=== PATIENT | male | born 1970 | race Caucasian/White ===

== ENCOUNTER 2017-03-19 03:58 | Emergency (ER) | payer SELFPAY ==
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
== END 2017-03-19 05:13 | disposition home or self-care (01) ==
LOC: ERS 03:58
DX: S92.332D Displaced fracture of third metatarsal bone, left foot, subsequent encounter for fracture with routine healing (principal); S92.342D Displaced fracture of fourth metatarsal bone, left foot, subsequent encounter for fracture with routine healing; J45.909 Unspecified asthma, uncomplicated; F41.9 Anxiety disorder, unspecified; F32.9 Major depressive disorder, single episode, unspecified; Z71.6 Tobacco abuse counseling; F17.210 Nicotine dependence, cigarettes, uncomplicated; X58.XXXD Exposure to other specified factors, subsequent encounter
CPT/HCPCS: 99406

== ENCOUNTER 2017-03-23 03:55 | Emergency (ER) | payer SELFPAY ==
[2017-03-23] MEDS ORDERED: Ketorolac Tromethamine 60 MG/2 ML VIAL ONE (05:12)
== END 2017-03-23 05:52 | disposition home or self-care (01) ==
LOC: ERS 03:55
DX: Z76.0 Encounter for issue of repeat prescription (principal); M79.672 Pain in left foot; J45.909 Unspecified asthma, uncomplicated; F41.9 Anxiety disorder, unspecified; F32.9 Major depressive disorder, single episode, unspecified; F17.210 Nicotine dependence, cigarettes, uncomplicated
CPT/HCPCS: 96372; 99406; J1885

== ENCOUNTER 2017-03-31 07:24 | Emergency (ER) | payer SELFPAY ==
[2017-03-31] MEDS ORDERED: Adacel (T-DAP) 0.5 ML VIAL ONE (07:29)
[2017-03-31] MEDS ORDERED: Bacitracin Zinc 1 Packet ONE (08:46)
== END 2017-03-31 08:55 | disposition home or self-care (01) ==
LOC: ERS 07:24
DX: S61.313A Laceration without foreign body of left middle finger with damage to nail, initial encounter (principal); J45.909 Unspecified asthma, uncomplicated; I10 Essential (primary) hypertension; F41.9 Anxiety disorder, unspecified; F32.9 Major depressive disorder, single episode, unspecified; F17.210 Nicotine dependence, cigarettes, uncomplicated; W23.0XXA Caught, crushed, jammed, or pinched between moving objects, initial encounter
CPT/HCPCS: 11760; 12001; 90715; 99406

== ENCOUNTER 2017-04-11 07:43 | Emergency (ER) | payer SELFPAY ==
[2017-04-11] MEDS ORDERED: Bacitracin Zinc 1 Packet ONE (09:04)
== END 2017-04-11 09:05 | disposition home or self-care (01) ==
LOC: ERS 07:43
DX: S61.213D Laceration without foreign body of left middle finger without damage to nail, subsequent encounter (principal); I10 Essential (primary) hypertension; J44.9 Chronic obstructive pulmonary disease, unspecified; F41.9 Anxiety disorder, unspecified; F32.9 Major depressive disorder, single episode, unspecified; F17.210 Nicotine dependence, cigarettes, uncomplicated; W23.0XXD Caught, crushed, jammed, or pinched between moving objects, subsequent encounter

== ENCOUNTER 2017-04-14 08:44 | Emergency (ER) | payer SELFPAY ==
[2017-04-14] MEDS ORDERED: Bacitracin Zinc 1 Packet ONE (09:35)
== END 2017-04-14 09:45 | disposition home or self-care (01) ==
LOC: ERS 08:44
DX: S61.203D Unspecified open wound of left middle finger without damage to nail, subsequent encounter (principal); L08.9 Local infection of the skin and subcutaneous tissue, unspecified; I10 Essential (primary) hypertension; J44.9 Chronic obstructive pulmonary disease, unspecified; F41.9 Anxiety disorder, unspecified; F32.9 Major depressive disorder, single episode, unspecified; F17.210 Nicotine dependence, cigarettes, uncomplicated; Z79.899 Other long term (current) drug therapy; W23.0XXD Caught, crushed, jammed, or pinched between moving objects, subsequent encounter
CPT/HCPCS: 99406

== ENCOUNTER 2017-05-07 14:11 | Outpatient (CLI) | payer SELFPAY ==
[~2017-05-07 14:11] MED LIST: Sodium Chloride 0.9% 15 ML NEB ONE
--- NOTE | 2017-05-07 18:42 | RAD ---
LEFT HAND THREE VIEWS: 05/07/17 HISTORY: Rule out fracture and osteomyelitis, finger pain. FINDINGS/IMPRESSION: There is bony destruction involving the tuft of the distal phalanx of the middle finger. The findings are suspicious for osteomyelitis. POS: [place]
--- NOTE | 2017-05-07 20:07 | HP ---
DATE OF SERVICE: 05/07/2017. HISTORY OF PRESENT ILLNESS: Mr. Fly Johnson is a very pleasant 46-year-old gentleman who p resents to the Wound Center for evaluation of an open wound of the distal left third finger. The pat ient states that on 03/31/2017, he smashed his distal left third finger between the handle of a shopp ing cart and the cement at [facility]. He states that the wheel of the shopping cart may have gotten caught on a "miniature manhole cover." The patient states that for the wound of his distal l eft third finger, he was seen in the Emergency Department. He states that a partially avulsed nail w as removed completely and the wound edges of his left third finger wound were approximated with sutur es. The patient states that he was also placed on a course of p.o. antibiotics. The patient states that he was seen by his physician in [place] on 04/03/2017 and at this time, began soaking his left t hird finger wound on a daily basis for the next 10 days to 2 weeks, he states that he soaked his woun d in a solution of Epsom salt and bleach. The patient states that 10 days after his sutures were momo kevin, the sutures were removed. He states that on 04/14/2017, he presented again to the Emergency Dep artment for throbbing associated with his wound and at this time was told that he had developed an in fectious process associated with this with his wound. At this time, he states he was placed on a cou rse of p.o. antibiotics for 7 days. The patient states that he was subsequently seen by Dr. Ca glaser to his left third finger wound, but at this time, the wound was examined and the patient was r eferred to the Wound Center for further evaluation and treatment. PAST MEDICAL HISTORY: Negative for any chronic medical conditions. PAST SURGICAL HISTORY: Left forearm surgery over 20 years ago. MEDICATIONS: 1. Robaxin. 2. Ativan. ALLERGIES: TRAMADOL. SOCIAL HISTORY: Significant for tobacco use of 1 pack of cigarettes per day for 20 years. The patie nt admits to the heavy consumption of alcohol in the past. He states that he has not consumed any al cohol; however, for the past 2 years. FAMILY HISTORY: Significant for diabetes mellitus. The patient states that his father and grandmoth er were both diagnosed with diabetes mellitus. Family history is also significant for coronary arter y disease. The patient states that his grandfather was diagnosed with coronary artery disease. REVIEW OF SYSTEMS: The patient states that he has been cleansing his left third finger wound with al cohol or iodine. He states that he has been dressing the wound with Neosporin followed by Telfa. He has also been applying a guar over his left third finger which is secured with tape. PHYSICAL EXAMINATION: VITAL SIGNS: Temperature 98.7, pulse 104, respirations 18, blood pressure 102/75. GENERAL: A 46-year-old gentleman sitting on table in examination room in no acute distress. HEENT: Normocephalic, atraumatic. NECK: No nuchal rigidity. CHEST: Clear to auscultation. CARDIAC: Regular rate and rhythm. ABDOMEN: Soft. EXTREMITIES: A wound of the distal left third finger is present which measures approximately 1.1 x 1 .0 cm. Granulation tissue is present within the wound margins. Necrotic and nonviable tissue presen t within the wound margins was debrided with an excisional full-thickness debridement with the use of scissors. A bone fragment within the wound margins was excised with the use of scissors and sent fo r aerobic and anaerobic cultures. Desiccated and necrotic tissues at the periphery of the wound were also excised with the use of scissors. No purulent drainage is associated with the granulating woun d. No cellulitis of the left hand is appreciated. No maceration of the skin of the periwound is not ed. Edema of the distal left third finger is present on exam today. ASSESSMENT AND PLAN: Open wound of left third finger as described above. Dressing changes of Silver gentry and Chele will be initiated today. These dressing changes are to be performed on a daily basis a fter cleansing and irrigation. The patient is also to continue to utilize his finger guard secured w ith tape at all times. No antibiotics will be prescribed today based upon the appearance of the woun d. Plain films of the left hand will be obtained today to look for findings suggestive of a fracture or osteomyelitis associated with the left third finger wound. I will see Mr. Johnson again in 1 wefredy miranda
== END 2017-05-07 14:12 | disposition home or self-care (01) ==
LOC: WCC 14:11
PROVIDERS: ATTEND Family Medicine
DX: S61.203D Unspecified open wound of left middle finger without damage to nail, subsequent encounter (principal)
CPT/HCPCS: 11042; 87070; 87205; 99203; A4218; G0463

== ENCOUNTER 2017-05-14 09:31 | Outpatient (CLI) | payer SELFPAY ==
--- NOTE | 2017-05-14 10:47 | PRG ---
DATE OF SERVICE: 05/14/2017 HISTORY: Mr. Fly Johnson is a very pleasant 46-year-old gentleman who presents to the Wound Center for evaluation of an open wound of the distal left third finger. The patient stated that on 03/31/2017, he smashed his distal left third finger between the handle of a shopping cart and the cement at [facility]. He stated that the wheel of his shopping cart may have gotten caught on a "miniature manhole cover." The patient stated that for the wound of his distal left third finger, he was seen in the Emergency Department. He stated that a partially avulsed nail was removed completely, and the wound edges of his left third finger wound were approximated with sutures. The patient stated that he was also placed on a course of p.o. antibiotics. The patient stated that he was seen by his physician in [place] on 04/03/2017 and at this time began soaking his left third finger wound on a daily basis for the next 10 days to 2 weeks. He stated that he soaked his wound in a solution of Epsom salt in bleach. The patient stated that 10 days after his sutures were placed, the sutures were removed. He stated that on 04/14/2017, he presented again to the Emergency Department for throbbing associated with his wound and at this time was told that he had developed an infectious process associated with his wound. At this time, he stated, he was placed on a course of p.o. antibiotics for 7 days. The patient stated that he was subsequently seen by Dr. Penaloza unrelated to his left third finger wound, but at this time the wound was examined and the patient was referred to the Wound Center for further evaluation and treatment. Since the patient's last visit to the Wound Center, he has been performing dressing changes of Silverlon and Chele on a daily basis after cleansing and irrigation. PHYSICAL EXAMINATION: VITAL SIGNS: Temperature 97.9, pulse 92, respirations 18, and blood pressure 131/78. EXTREMITIES: A wound of the distal left third finger is present which measures approximately 0.5 x 0.8 cm. The dimensions of the wound at the time of the patient's last visit were approximately 1.1 x 1.0 cm. Granulation tissue is present within the wound margins. Necrotic and nonviable tissue present within the wound margins was debrided with an excisional full-thickness debridement with the use of a curette. Desiccated and necrotic tissue at the periphery of the wound were excised with the use of scissors. No purulent drainage is associated with the wound. No cellulitis of the left hand is appreciated. No maceration of the skin of the periwound is noted. Edema of the distal left third finger is again present on today's exam. ASSESSMENT AND PLAN: Open wound of left third finger as described above. Dressing changes of Silverlon and Chele will be continued on a daily basis after cleansing and irrigation. The patient has been told to continue to utilize his finger guard secured with tape at all times. Plain films of the left hand revealed findings suspicious for osteomyelitis of the tuft of the distal phalanx of the middle finger. The patient has been asked to report to the Emergency Department for further evaluation and treatment. The patient understands and is in agreement with the preceding treatment plan. I will see Mr. Johnson again in 1 week or alternatively after he has been seen in the Emergency Department. JADIEL
[2017-05-14] MEDS ORDERED: Sodium Chloride 0.9% 15 ML NEB ONE (13:24)
[2017-05-14] MEDS ORDERED: Lidocaine 2% Jelly 5 ML TUBE ONE (13:24)
== END 2017-05-14 09:32 | disposition home or self-care (01) ==
LOC: WCC 09:31
PROVIDERS: ATTEND Family Medicine
DX: S61.203A Unspecified open wound of left middle finger without damage to nail, initial encounter (principal)
CPT/HCPCS: 11042; A4218

== ENCOUNTER 2017-05-14 10:29 | Emergency (ER) | payer SELFPAY ==
[2017-05-14 11:14] LABS: #Basophils 0.1 thou/uL (0.0-0.2); #Eosinphils 0.1 thou/uL (0.0-0.7); #Monocytes 0.5 thou/uL (0.11-0.59); #Neutrophils 3.4 thou/uL (1.40-6.50); %Basophils 1.4 % (0.0-1.0); %Eosinophils 1.9 % (0.0-10.0); %Lymphocytes 32.3 % (21.0-51.0); %Monocytes 8.4 % (0.0-10.0); Hemoglobin 16.1 g/dL (14.0-18.0); Mean Corpuscular HGB CONC 32.9 g/dL (32.0-36.0); Mean Corpuscular Hemoglobin 34.2 pg (27.0-31.0); Mean Platelet Volume 7.1 fL (7.4-10.4); Platelet Count 287 thou/uL (130-400); RBC Distribution Width 11.8 % (11.5-14.5); Red Blood Cell (RBC) Count 4.69 mill/uL (4.70-6.10); White Blood Cell (WBC) Count 6.1 thou/uL (4.8-10.8)
[2017-05-14 11:35] LABS: ALT (SGPT) 12 U/L (8-55); AST (SGOT) 9 U/L (5-34); Albumin 4.5 g/dL (3.5-5.0); Alkaline Phosphatase 101 U/L (40-150); Anion Gap 12 mmol/L (10-20); BUN (Urea Nitrogen) 15 mg/dL (8.9-20.6); Bilirubin, Total 0.5 mg/dL (0.2-1.2); Calc. Creatinine Clearance 0 mL/min (70-130); Calcium 9.7 mg/dL (7.8-10.44); Carbon Dioxide 28 mmol/L (22-29); Chloride 103 mmol/L (98-107); Estimated GFR-MDRD 81; Globulin 2.6 g/dL (2.4-3.5); Glucose 89 mg/dL (70-105); Potassium 4.5 mmol/L (3.5-5.1); Protein, Total 7.1 g/dL (6.0-8.3); Sodium 138 mmol/L (136-145)
[2017-05-14] MEDS ORDERED: Bacitracin Zinc 1 Packet ONE (11:52)
== END 2017-05-14 12:00 | disposition home or self-care (01) ==
LOC: ERS 10:29
DX: M86.9 Osteomyelitis, unspecified (principal); I10 Essential (primary) hypertension; J44.9 Chronic obstructive pulmonary disease, unspecified; F41.9 Anxiety disorder, unspecified; F32.9 Major depressive disorder, single episode, unspecified; F17.210 Nicotine dependence, cigarettes, uncomplicated
CPT/HCPCS: 36415; 80053; 85025; 85652; 86140; 99283

== ENCOUNTER 2017-05-23 08:51 | Outpatient (CLI) | payer SELFPAY ==
--- NOTE | 2017-05-23 11:30 | PRG ---
DATE OF SERVICE: 05/23/2017 HISTORY: Mr. Fly Johnson is a very pleasant 46-year-old gentleman who presents to the Wound Center for evaluation of an open wound of the distal left third finger. The patient stated that on 03/31/2017 he smashed his distal left third finger between the handle of a shopping cart and the cement at [facility]. He stated that the wheel of his shopping cart may have gotten caught on a "miniature manhole cover." The patient stated that for the wound of his distal left third finger, he was seen in the Emergency Department. He stated that a partially avulsed nail was removed completely, and the wound edges of his left third finger wound were approximated with sutures. The patient stated that he was also placed on a course of p.o. antibiotics. The patient stated that he was seen by his physician in [place] on 04/03/2017 and at this time began soaking his left third finger wound on a daily basis for the next 10 days to 2 weeks. He stated that he soaked his wound in a solution of Epsom salt and bleach. The patient stated that 10 days after his sutures were placed, the sutures were removed. He stated that on 04/14/2017 he presented again to the Emergency Department for throbbing associated with his wound and at this time was told that he had developed an infectious process associated with his wound. At this time, he stated, he was placed on a course of p.o. antibiotics for 7 days. The patient stated that he was subsequently seen by Dr. Penaloza unrelated to his left third finger wound, but at this time the wound was examined and the patient was referred to the Wound Center for further evaluation and treatment. Since the patient's last visit to the Wound Center, Mr. Johnson has been seen in the Emergency Department. The patient has also been seen in consultation by Orthopedic Surgery. The patient states that he has a follow-up appointment with Orthopedic Surgery in 1 month. PHYSICAL EXAMINATION: VITAL SIGNS: Temperature 98.4, pulse 84, respirations 18, blood pressure 126/ 69. EXTREMITIES: The wound of the distal left third finger has healed completely. ASSESSMENT AND PLAN: Wound of left third finger. As stated above, the wound has completely healed. The patient has been asked to continue to dress the left third finger wound with gauze followed by his finger guard. The patient is also to keep his follow-up appointment with Orthopedic Surgery in 1 month. Plain films of the left hand revealed finding suspicious for osteomyelitis of the tuft of the distal phalanx of the middle finger. The patient understands and is in agreement with the preceding treatment plan. Mr. Johnson will be discharged from clinic today with follow up on a p.r.n. basis. JADIEL
[2017-05-25] MEDS ORDERED: Sodium Chloride 0.9% 15 ML NEB ONE (15:54)
== END 2017-05-23 08:52 | disposition home or self-care (01) ==
LOC: WCC 08:51
PROVIDERS: ATTEND Family Medicine
DX: S61.203D Unspecified open wound of left middle finger without damage to nail, subsequent encounter (principal)
CPT/HCPCS: 97602

== ENCOUNTER 2019-09-08 17:49 | Inpatient (IN) | payer MEDICARE ==
[2019-09-08] MEDS ORDERED: Fentanyl 100 MCG/2 ML VIAL ONE (18:18)
[2019-09-08 19:34] LABS: #Basophils 0.1 thou/uL (0.0-0.2); #Lymphocytes 1.4 thou/uL (1.20-3.40); #Monocytes 0.8 thou/uL (0.11-0.59); #Neutrophils 16.2 thou/uL (1.40-6.50); %Basophils 0.6 % (0.0-1.0); %Eosinophils 0.2 % (0.0-10.0); %Lymphocytes 7.3 % (21.0-51.0); %Monocytes 4.5 % (0.0-10.0); %Neutrophils 87.5 % (42.0-75.0); Hemoglobin 15.7 g/dL (14.0-18.0); Mean Corpuscular Hemoglobin 34.2 pg (27.0-31.0); Mean Platelet Volume 7.6 fL (7.4-10.4); Platelet Count 292 thou/uL (130-400); RBC Distribution Width 13.1 % (11.5-14.5); Red Blood Cell (RBC) Count 4.59 mill/uL (4.70-6.10); White Blood Cell (WBC) Count 18.5 thou/uL (4.8-10.8)
--- NOTE | 2019-09-08 19:36 | RAD ---
CHEST ONE VIEW: History: Pre-op evaluation. Comparison: Chest radiograph, 2017. FINDINGS: Multiple likely old right sided rib fractures. Right distal navicular osteolysis. Likely a right upper lobe bullae. No left sided confluent air space consolidation, pneumothorax, or e ffusion. IMPRESSION: Chronic findings. POS: [facility]
[2019-09-08 19:40] LABS: INR-International Normal Ratio 0.9; Prothrombin Time 12.5 sec (12.0-14.7)
[2019-09-08 19:42] LABS: PTT 22.8 SEC (22.9-36.1)
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
[2019-09-08 19:54] LABS: ALT (SGPT) 17 U/L (8-55); AST (SGOT) 17 U/L (5-34); Albumin 4.1 g/dL (3.5-5.0); Alkaline Phosphatase 108 U/L (40-110); Anion Gap 12 mmol/L (10-20); BUN (Urea Nitrogen) 12 mg/dL (8.9-20.6); Bilirubin, Total 0.4 mg/dL (0.2-1.2); Calc. Creatinine Clearance 0 mL/min (70-130); Calcium 8.8 mg/dL (7.8-10.44); Carbon Dioxide 26 mmol/L (22-29); Chloride 103 mmol/L (98-107); Estimated GFR-MDRD 88; Globulin 2.4 g/dL (2.4-3.5); Glucose 112 mg/dL (70-105); Potassium 3.6 mmol/L (3.5-5.1); Protein, Total 6.5 g/dL (6.0-8.3); Sodium 137 mmol/L (136-145)
[2019-09-08] MEDS ORDERED: Morphine 4 MG/ML VIAL ONE ×2 (21:28→22:20)
[2019-09-08 22:00] LABS: Lipase 13 U/L (8-78); Phosphorus 2.5 mg/dL (2.3-4.7)
[2019-09-08] MEDS ORDERED: Albuterol 200 PUFF (6.7GM INHALER) ONE (22:20)
[2019-09-08] MEDS ORDERED: Morphine 2 MG/ML SYRINGE SLOW IVP PRN (22:42)
[2019-09-08] MEDS ORDERED: Ondansetron PF 4 MG/2 ML Vial IVP PRN (22:42)
[2019-09-08] MEDS ORDERED: Dextrose 50% Abboject 50 ML SYRINGE SLOW IVP PRN (22:42)
[2019-09-08] MEDS ORDERED: Insulin Regular 300 UNITS/3 ML VIAL SC PRN ×2 (22:42)
[2019-09-08] MEDS ORDERED: Dextrose 5% in Water 1,000 ML IV PRN (22:42)
[2019-09-08] MEDS ORDERED: Ondansetron ODT 4 MG TAB PO PRN (22:42)
[2019-09-08] MEDS ORDERED: hydrALAZINE 20 MG/ML VIAL SLOW IVP PRN (22:42)
[2019-09-08] MEDS ORDERED: Ibuprofen 600 MG TAB PO PRN (22:47)
[2019-09-08] MEDS ORDERED: Acetaminophen/Codeine 30-300mg Tablet PO PRN ×2 (22:48)
[2019-09-08] MEDS ORDERED: Potassium Phosphate 30 MMOL in Sodium Chloride 0.9% 500 ML IVPB SCH (23:00)
[2019-09-09] MEDS: Cyclobenzaprine 10 MG TAB PO PRN ×2 (01:00→16:19)
[2019-09-09] MEDS: Acetaminophen 325 MG TAB PO SCH ×5 (01:00→23:40)
[2019-09-09 01:19] VITALS: BMI 26.9
[2019-09-09] MEDS: Sodium Chloride 0.9% 1,000 ML IV SCH ×4 (01:39→23:44)
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
[2019-09-09 05:51] LABS: Anion Gap 11 mmol/L (10-20); BUN (Urea Nitrogen) 13 mg/dL (8.9-20.6); Calc. Creatinine Clearance 143 mL/min (70-130); Calcium 8.2 mg/dL (7.8-10.44); Carbon Dioxide 27 mmol/L (22-29); Chloride 102 mmol/L (98-107); Estimated GFR-MDRD Greater than 90; Glucose 116 mg/dL (70-105); Potassium 4.2 mmol/L (3.5-5.1); Sodium 136 mmol/L (136-145)
[2019-09-09] MEDS ORDERED: CEFAZOLIN 2 GM in Premix Bag 1 BAG IVPB SCH ×4 (07:33→16:00)
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
[2019-09-09] MEDS: Senokot S 8.6-50 MG TAB PO SCH ×2 (08:16→20:16)
[2019-09-09] MEDS: Polyethylene Glycol 3350 17 GM Packet PO SCH (08:16)
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
[2019-09-09] MEDS ORDERED: ALBUTEROL SULFATE 90 MCG PO PRN (10:13)
[2019-09-09] MEDS ORDERED: PROVENTIL INHALER 6.7 G (200 INHALATIONS) INH PRN (10:49)
[2019-09-09] MEDS ORDERED: Lidocaine 1% PF 5 ML VIAL ONE ×2 (11:08→11:41)
[2019-09-09] MEDS ORDERED: Succinylcholine Chloride 20 MG/ML 10 ml SYRINGE FS ONE (11:08)
[2019-09-09] MEDS ORDERED: Ondansetron PF 4 MG/2 ML Vial ONE (11:08)
[2019-09-09] MEDS ORDERED: Ketorolac Tromethamine 30 MG/ML VIAL ONE (11:08)
[2019-09-09] MEDS ORDERED: Rocuronium Bromide 10 MG/ML (10ML VIAL) ONE (11:08)
[2019-09-09] MEDS ORDERED: PROPOFOL 200 MG/20 ML VIAL ONE (11:08)
[2019-09-09] MEDS ORDERED: Midazolam HCl 2 mg/2 ml Vial ONE (11:41)
[2019-09-09] MEDS ORDERED: Fentanyl 100 MCG/2 ML VIAL ONE ×5 (11:41→14:45)
[2019-09-09] MEDS ORDERED: Promethazine HCl 25 MG/ML VIAL SLOW IVP PRN (13:16)
[2019-09-09] MEDS ORDERED: Promethazine HCl 25 MG/ML VIAL IM PRN ×2 (13:16→14:44)
[2019-09-09] MEDS ORDERED: Ondansetron HCl/PF 4 MG/2 ML Vial IVP PRN (13:16)
[2019-09-09] MEDS ORDERED: Ondansetron PF 4 MG/2 ML Vial IVP PRN (14:44)
[2019-09-09] MEDS ORDERED: HYDROcodone/Acetaminophen 10/325 mg Tablet PO PRN ×2 (14:44)
[2019-09-09] MEDS ORDERED: Acetaminophen 325 MG TAB PO PRN (14:44)
[2019-09-09] MEDS ORDERED: Ropivacaine HCl/PF 250 ML in Premix Bag 1 BAG NERVE BLCK SCH (14:44)
[2019-09-09] MEDS ORDERED: Zolpidem Tartrate 5 MG TAB PO PRN (14:44)
[2019-09-09] MEDS ORDERED: Fentanyl 100 MCG/2 ML VIAL SLOW IVP PRN (14:45)
[2019-09-09] MEDS ORDERED: HYDROcodone/Acetaminophen 10/325 mg Tablet ONE (14:55)
[2019-09-09] MEDS: Nicotine 14 MG PATCH TD SCH (16:20)
[2019-09-09] MEDS: Ketorolac Tromethamine 30 MG/ML VIAL IVP SCH ×2 (17:58→23:40)
--- NOTE | 2019-09-09 18:27 | RAD ---
TWO VIEWS OF THE LEFT FORELE09/09/19 INDICATIONS: ORIF of left tibia and fibula fracture. COMPARISON: Prior exam dated 09/08/19. IMPRESSION: Since the comparison examination there has been reduction and internal fixation of the comminuted spi ral fracture of the proximal tibial metadiaphyseal region. There is a lateral JORDIN plate and screw fi xation construct that projects into expected position. There is approved alignment of the displaced p roximal fibular shaft fracture. There is some residual medial displacement of the distal fracture fra gment approximated one full shaft width. Total exposure was 0.56 mGy. Total fluoroscopic time was 13. 2 seconds. IMPRESSION: 1. Interval ORIF of the left proximal tibial fracture. 2. Improved alignment of the comminuted proximal fibular shaft. POS: BH
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
[2019-09-09] MEDS: Lorazepam 1 MG TAB PO SCH (20:16)
[2019-09-09] MEDS: CEFAZOLIN 2 GM in Premix Bag 1 BAG IVPB SCH (20:16)
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
[2019-09-10] MEDS: Acetaminophen 325 MG TAB PO SCH ×2 (05:33→13:02)
[2019-09-10] MEDS: Ketorolac Tromethamine 30 MG/ML VIAL IVP SCH (05:33)
[2019-09-10] MEDS: CEFAZOLIN 2 GM in Premix Bag 1 BAG IVPB SCH (05:33)
[2019-09-10 05:59] LABS: #Lymphocytes 1.7 thou/uL (1.20-3.40); #Monocytes 0.7 thou/uL (0.11-0.59); #Neutrophils 7.4 thou/uL (1.40-6.50); %Basophils 0.4 % (0.0-1.0); %Eosinophils 0.5 % (0.0-10.0); %Lymphocytes 17.4 % (21.0-51.0); %Monocytes 7.3 % (0.0-10.0); %Neutrophils 74.4 % (42.0-75.0); Hemoglobin 11.6 g/dL (14.0-18.0); Mean Corpuscular HGB CONC 32.4 g/dL (32.0-36.0); Mean Corpuscular Hemoglobin 33.7 pg (27.0-31.0); Mean Platelet Volume 7.5 fL (7.4-10.4); Platelet Count 187 thou/uL (130-400); RBC Distribution Width 12.8 % (11.5-14.5); Red Blood Cell (RBC) Count 3.45 mill/uL (4.70-6.10)
[2019-09-10] MEDS: Lorazepam 1 MG TAB PO SCH (08:52)
[2019-09-10] MEDS: Nicotine 14 MG PATCH TD SCH (08:52)
[2019-09-10] MEDS: Polyethylene Glycol 3350 17 GM Packet PO SCH (08:53)
[2019-09-10] MEDS: Senokot S 8.6-50 MG TAB PO SCH (08:53)
[2019-09-10] MEDS ORDERED: tiZANidine HCl 4 MG TAB PO SCH (09:00)
[2019-09-10] MEDS ORDERED: Lorazepam 0.5 MG TAB PO SCH (09:00)
[2019-09-10] MEDS ORDERED: PARoxetine 20 MG TAB PO SCH (09:00)
[2019-09-10] MEDS ORDERED: PAROXETINE HCL 30 MG PO SCH (09:00)
[2019-09-10] MEDS ORDERED: Ibuprofen 600 MG TAB PO SCH (12:00)
[2019-09-10 12:34] VITALS: BP 94/62; TEMP 98.5
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
[2019-09-10] MEDS ORDERED: Enoxaparin Sodium 40 MG/0.4 ML SYRINGE SC SCH (21:00)
== END 2019-09-10 13:40 | disposition home or self-care (01) | DRG 494 ==
LOC: ERS 17:49 → SURG A 22:42
PROVIDERS: ADMIT Specialist; ATTEND Specialist
PROC: 0QSH04Z Reposition Left Tibia with Internal Fixation Device, Open Approach (ICD-10-PCS; principal; 2019-09-09)
DX: S82.192B Other fracture of upper end of left tibia, initial encounter for open fracture type I or II (principal); S82.432B Displaced oblique fracture of shaft of left fibula, initial encounter for open fracture type I or II; J44.9 Chronic obstructive pulmonary disease, unspecified; R73.03 Prediabetes; F17.210 Nicotine dependence, cigarettes, uncomplicated; V29.40XA Motorcycle driver injured in collision with unspecified motor vehicles in traffic accident, initial encounter; Z88.5 Allergy status to narcotic agent; Z79.899 Other long term (current) drug therapy; Z79.51 Long term (current) use of inhaled steroids
CPT/HCPCS: 36415; 36416; 71045; 76000; 80048; 80053; 83690; 83735; 84100; 85025; 85610; 85730; 90471; 90732; 93005; 94640; 96365; 96367; 96375; 96376; C1713; G0009; J0690; J1885; J2001; J2250; J2270; J2405; J2704; J3010; J7030; J7620

== ENCOUNTER 2019-10-28 10:14 | Observation (INO) | payer MEDICARE ==
[2019-10-28 11:35] LABS: #Basophils 0.1 thou/uL (0.0-0.2); #Eosinphils 0.1 thou/uL (0.0-0.7); #Lymphocytes 1.2 thou/uL (1.20-3.40); #Monocytes 0.4 thou/uL (0.11-0.59); #Neutrophils 4.5 thou/uL (1.40-6.50); %Basophils 0.8 % (0.0-1.0); %Eosinophils 1.7 % (0.0-10.0); %Lymphocytes 19.3 % (21.0-51.0); %Monocytes 6.1 % (0.0-10.0); Hemoglobin 15.9 g/dL (14.0-18.0); Mean Corpuscular HGB CONC 33.4 g/dL (32.0-36.0); Mean Corpuscular Hemoglobin 34.3 pg (27.0-31.0); Platelet Count 370 thou/uL (130-400); RBC Distribution Width 12.8 % (11.5-14.5); Red Blood Cell (RBC) Count 4.65 mill/uL (4.70-6.10); White Blood Cell (WBC) Count 6.3 thou/uL (4.8-10.8)
[2019-10-28] MEDS ORDERED: Fentanyl 100 MCG/2 ML VIAL ONE ×5 (12:35→15:33)
[2019-10-28] MEDS ORDERED: Neomycin-Polymyxin 1 ML AMP ONE (13:02)
[2019-10-28] MEDS ORDERED: HYDROmorphone 0.5 MG/0.5 ML SYRINGE ONE (13:03)
[2019-10-28] MEDS ORDERED: PROPOFOL 200 MG/20 ML VIAL ONE (14:37)
[2019-10-28] MEDS ORDERED: Lidocaine 1% PF 5 ML VIAL ONE (14:37)
[2019-10-28] MEDS ORDERED: Dexamethasone 20 MG/5 ML VIAL ONE (14:37)
[2019-10-28] MEDS ORDERED: Ondansetron PF 4 MG/2 ML Vial ONE (14:37)
[2019-10-28] MEDS ORDERED: HYDROcodone/Acetaminophen 5/325 mg Tablet PO PRN (14:48)
[2019-10-28] MEDS ORDERED: Ondansetron HCl/PF 4 MG/2 ML Vial IVP PRN (14:50)
[2019-10-28] MEDS ORDERED: PACU-Morphine 4MG/ML VIAL SLOW IVP PRN (14:50)
[2019-10-28] MEDS ORDERED: Promethazine HCl 25 MG/ML VIAL SLOW IVP PRN (14:50)
[2019-10-28] MEDS ORDERED: HYDROmorphone 2 MG/ML VIAL SLOW IVP PRN (14:50)
[2019-10-28] MEDS ORDERED: Morphine Sulfate 2 MG/ML SYRINGE SLOW IVP PRN (14:50)
[2019-10-28] MEDS ORDERED: Promethazine HCl 25 MG/ML VIAL IM PRN (14:50)
[2019-10-28] MEDS ORDERED: Meperidine HCl/PF 25 MG/ML VIAL SLOW IVP PRN (14:50)
[2019-10-28] MEDS ORDERED: CEFAZOLIN 2 GM in Premix Bag 1 BAG IVPB SCH (16:00)
[2019-10-28] MEDS: HYDROcodone/Acetaminophen 5/325 mg Tablet PO PRN ×2 (17:42→21:22)
[2019-10-28] MEDS: Aspirin 81 mg Enteric Coated Tablet PO SCH (21:22)
[2019-10-28] MEDS: CEFAZOLIN 2 GM in Premix Bag 1 BAG IVPB SCH (21:22)
[2019-10-28] MEDS: Ketorolac Tromethamine 30 MG/ML VIAL IVP PRN (21:55)
--- NOTE | 2019-10-28 22:27 | OP ---
DATE OF PROCEDURE: 10/28/2019 PREOPERATIVE DIAGNOSIS: Left lower leg wound dehiscence, status post open reduction and internal fixation of left proximal tibial metaphysis. POSTOPERATIVE DIAGNOSIS: Left lower leg wound dehiscence, status post open reduction and internal fixation of left proximal tibial metaphysis. PROCEDURES: 1. Irrigation and debridement of left leg wound dehiscence. 2. Application of wound VAC, left leg. ANESTHESIA: General. CONTACT MANAGER: Pretty Spivey PA-C TOURNIQUET TIME: Zero. SPECIMEN: Eschar discarded. COMPLICATIONS: None. DRAINS: Wound VAC x1. OUTCOME: Satisfactory. INDICATIONS FOR PROCEDURE: Patient is a 49-year-old gentleman, now approaching two months post open reduction and internal fixation of left proximal tibial metaphyseal fracture. Patient has gone on to develop an eschar and partial wound dehiscence of this leg. He was seen last week in the clinic, where he was started on some oral antibiotics and then asked to return this week. Upon reevaluation, he does have an eschar that is now fully detached from the surrounding skin edges with some serosanguineous drainage. Given this finding, patient now taken to the operating room for debridement, anticipated wound VAC application. Informed consent has been obtained. I believe all questions have been answered. DESCRIPTION OF PROCEDURE: Patient was brought to the operating room and a time-out performed followed by induction of general anesthesia. Next, a sterile prep and drape was performed of the left lower extremity. Next, a scalpel was used to sharply debride the eschar along with portion of the skin edges and some of the fibrinous exudate overlying the fascia. The fascia was still closed with no holes apparent within the fascia. Given this finding, the sharp debridement stopped at the level of the fascia. There was a second small area of partial thickness wound dehiscence just distal. This also sharply debrided through the level of skin and subcutaneous tissue. With completion of this, 3 L of normal saline was irrigated through this superficial wound dehiscence. Once completed, there was found to be punctate bleeding of much of the fascia and surrounding skin edge. At this point, the wound care team was in the operating room and a wound VAC applied. At the completion of that, patient was then transferred to recovery room in stable condition. There were no complications. He tolerated the procedure well. Job ID: [id number]
[2019-10-29] MEDS: HYDROcodone/Acetaminophen 5/325 mg Tablet PO PRN ×6 (01:31→22:54)
[2019-10-29] MEDS: Ketorolac Tromethamine 30 MG/ML VIAL IVP PRN (05:59)
[2019-10-29] MEDS: CEFAZOLIN 2 GM in Premix Bag 1 BAG IVPB SCH ×3 (05:59→22:56)
[2019-10-29 06:10] LABS: #Basophils 0.1 thou/uL (0.0-0.2); #Eosinphils 0.1 thou/uL (0.0-0.7); #Lymphocytes 2.3 thou/uL (1.20-3.40); #Monocytes 0.6 thou/uL (0.11-0.59); #Neutrophils 3.5 thou/uL (1.40-6.50); %Basophils 0.9 % (0.0-1.0); %Eosinophils 1.6 % (0.0-10.0); %Lymphocytes 35.2 % (21.0-51.0); %Monocytes 9.3 % (0.0-10.0); %Neutrophils 53.1 % (42.0-75.0); Hemoglobin 13.6 g/dL (14.0-18.0); Mean Corpuscular Hemoglobin 33.3 pg (27.0-31.0); Mean Platelet Volume 6.9 fL (7.4-10.4); Platelet Count 333 thou/uL (130-400); RBC Distribution Width 12.5 % (11.5-14.5); Red Blood Cell (RBC) Count 4.08 mill/uL (4.70-6.10); White Blood Cell (WBC) Count 6.6 thou/uL (4.8-10.8)
[2019-10-29] MEDS: Aspirin 81 mg Enteric Coated Tablet PO SCH ×2 (08:53→22:55)
[2019-10-29] MEDS ORDERED: TETANUS AND DIPHTHERIA TOX/PF 0.5 ML DISP.SYRIN IM SCH (09:00)
[2019-10-29 14:21] VITALS: BMI 26.2
[2019-10-30] MEDS: HYDROcodone/Acetaminophen 5/325 mg Tablet PO PRN ×3 (03:02→10:12)
[2019-10-30] MEDS: CEFAZOLIN 2 GM in Premix Bag 1 BAG IVPB SCH (06:43)
[2019-10-30 08:42] VITALS: BP 133/84; TEMP 98.3
--- NOTE | 2019-10-30 09:20 | DIS ---
DATE OF ADMISSION: 10/28/2019 DATE OF DISCHARGE: 10/30/2019 This is Pretty Spivey PA-C dictating a report for Isiah Thibodeaux MD. PREOPERATIVE DIAGNOSIS: Left lower leg wound dehiscence, status post open reduction and internal fixation of left proximal tibial metaphysis. POSTOPERATIVE DIAGNOSIS: Left lower leg wound dehiscence, status post open reduction and internal fixation of left proximal tibial metaphysis. PROCEDURES PERFORMED: 1. Irrigation and debridement of left leg wound dehiscence. 2. Application of wound VAC, left leg. BRIEF HOSPITAL COURSE: This is a 49-year-old gentleman, approximately two months status post open reduction and internal fixation of a left proximal tibial metaphyseal fracture. The patient has gone on to develop an eschar and partial wound dehiscence of his leg. He has been seen in the clinic recently, where he was started on some oral antibiotics and then asked to return. Upon re-evaluation, he did have an eschar that was fully detached from the surrounding skin edges with some serosanguineous drainage. Given this finding, the patient was indicated for the above-mentioned procedure. He did well in the operative suite and then postoperatively, he was admitted to [place] [address] [facility]. Here, he continued to work on his nonweightbearing status. He had a wound VAC, which was applied in the operating room. He underwent approval for a home VAC through wound care. He also underwent process for Home Health Therapy to see him upon discharge to take care of his wound VAC. He is now postoperative day #2 and indicated for discharge home. DISCHARGE DISPOSITION: Home. DISCHARGE CONDITION: Stable. DISCHARGE INSTRUCTIONS: The patient will follow up with Home Health for wound VAC changes. He will follow up in our clinic as scheduled. We have again discussed smoking cessation. He will continue antibiotics as prescribed in the clinic. DISCHARGE MEDICATIONS: See JUN. Job ID: [id number]
[2019-10-30] MEDS: Aspirin 81 mg Enteric Coated Tablet PO SCH (10:11)
--- NOTE | 2019-11-05 05:51 | PQF ---
[facility] POST DISCHARGE CLINICAL DOCUMENTATION IMPROVEMENT CLARIFICATION FORM l Todays Date: 11/04/19 l Patients Name PARTH HICKMAN l l Admit Date 10/28/19 l Disch Date 10/30/19 Hyperion Developer Name Artem Garcia Email: [email or web address] Cell: [phone] To be completed by Hyperion Developer: Present Clinical Indicators - Signs / Symptoms Results and Location in Medical Record [ ] Documentation of: [ ] [ ] Documentation of: [ ] [ ] Documentation of: [ ] [ ] Documentation of: [ ] [ ] Risks [ ] [ ] [ ] Treatment [ ] Superficial postoperative wound dehiscence Left lower leg Query for area (sq cm) of debridement [ ] [ ] To be completed by Physician: KHUSHBOO SINGLETON The documentation in this patients record requires clarification to ensure coding compliance and accuracy. Check the appropriate box and include in your discharge summary. [ ] [ ] [ ] [ ] Please check this box if this does not apply to this patient [ ] Unable to determine [ ] Other diagnosis: Review the following information and exercise your independent professional judgment in responding to the clarification. Based upon the clinical findings, risk factors, and treatment, please clarify if you are treating one of the above probable or suspected diagnoses. Physician Signature: Date Time MTDD
== END 2019-10-30 13:35 | disposition home or self-care (01) ==
LOC: SDC 10:14 → SURG B 16:06
PROVIDERS: ADMIT Orthopaedic Surgery; ATTEND Orthopaedic Surgery
DX: T81.31XA Disruption of external operation (surgical) wound, not elsewhere classified, initial encounter (principal); J44.9 Chronic obstructive pulmonary disease, unspecified; R73.03 Prediabetes; F17.200 Nicotine dependence, unspecified, uncomplicated; Z79.1 Long term (current) use of non-steroidal anti-inflammatories (NSAID); Z79.82 Long term (current) use of aspirin; Z79.899 Other long term (current) drug therapy; Z88.5 Allergy status to narcotic agent; Z91.048 Other nonmedicinal substance allergy status
CPT/HCPCS: 85025 ×2; 85652; 86140; 96365; 96366; 96375; 96376 ×2; 97139 ×6; G0378 ×3; 36415; J0690; J1100; J1170; J1885; J2405; J2704; J3010

== ENCOUNTER 2019-12-02 09:11 | Outpatient (CLI) | payer MEDICARE, OTHER ==
[2019-12-03 15:25] LABS: SARS-CoV-2 MS2 Positive; SARS-CoV-2 N Gene Negative; SARS-CoV-2 S Gene Negative; SARS-CoV-2 by NAA Not Detected (NotDetected); SARS-CoV-2 orf1ab Negative
== END 2019-12-02 09:12 | disposition home or self-care (01) ==
LOC: LABBT 09:11
PROVIDERS: ATTEND Orthopaedic Surgery
DX: Z01.812 Encounter for preprocedural laboratory examination (principal); Z11.59 Encounter for screening for other viral diseases; S82.202D Unspecified fracture of shaft of left tibia, subsequent encounter for closed fracture with routine healing
CPT/HCPCS: 87635; U0003

== ENCOUNTER 2020-01-04 15:24 | Inpatient (IN) | payer MEDICARE, OTHER ==
[~2020-01-04 15:24] MED LIST changes: +Heparin 1,000 UNITS/ML VIAL ONE; -Sodium Chloride 0.9% 15 ML NEB ONE
[2020-01-04] MEDS ORDERED: Vancomycin 1 GM/200 ML BAG ONE (16:25)
[2020-01-04 16:28] LABS: #Basophils 0.1 thou/uL (0.0-0.2); #Eosinphils 0.2 thou/uL (0.0-0.7); #Lymphocytes 0.6 thou/uL (1.20-3.40); #Monocytes 0.3 thou/uL (0.11-0.59); #Neutrophils 15.2 thou/uL (1.40-6.50); %Basophils 0.3 % (0.0-1.0); %Eosinophils 1.1 % (0.0-10.0); %Lymphocytes 3.7 % (21.0-51.0); %Monocytes 1.9 % (0.0-10.0); Hemoglobin 11.5 g/dL (14.0-18.0); Mean Corpuscular HGB CONC 32.4 g/dL (32.0-36.0); Mean Corpuscular Hemoglobin 33.3 pg (27.0-31.0); Mean Platelet Volume 7.2 fL (7.4-10.4); Platelet Count 351 thou/uL (130-400); RBC Distribution Width 13.1 % (11.5-14.5); Red Blood Cell (RBC) Count 3.44 mill/uL (4.70-6.10); White Blood Cell (WBC) Count 16.3 thou/uL (4.8-10.8)
[2020-01-04 16:50] LABS: ALT (SGPT) Less than 7 U/L (8-55); AST (SGOT) 9 U/L (5-34); Albumin 3.6 g/dL (3.5-5.0); Alkaline Phosphatase 140 U/L (40-110); Anion Gap 17 mmol/L (10-20); BUN (Urea Nitrogen) 21 mg/dL (8.9-20.6); Bilirubin, Total 0.7 mg/dL (0.2-1.2); CK (CPK) 150 U/L (30-200); Calc. Creatinine Clearance 0 mL/min (70-130); Calcium 9.2 mg/dL (7.8-10.44); Carbon Dioxide 25 mmol/L (22-29); Chloride 93 mmol/L (98-107); Estimated GFR-MDRD 36; Globulin 3.1 g/dL (2.4-3.5); Glucose 132 mg/dL (70-105); Potassium 3.4 mmol/L (3.5-5.1); Protein, Total 6.7 g/dL (6.0-8.3); Sodium 132 mmol/L (136-145)
[2020-01-04] MEDS ORDERED: Cefepime 2 GM VIAL ONE (16:56)
[2020-01-04 17:01] LABS: CRP (Inflammatory) 50.99 mg/dL (= or < 0.5)
[2020-01-04] MEDS ORDERED: Clindamycin/D5W 900 mg/50 ml Premix Bag ONE (17:08)
[2020-01-04] MEDS ORDERED: Morphine 4 MG/ML VIAL ONE (18:22)
[2020-01-04] MEDS ORDERED: Ondansetron PF 4 MG/2 ML Vial IVP PRN (19:47)
[2020-01-04] MEDS ORDERED: [UNRECOGNIZED DRUG - REMARK] IVPB PRN (19:59)
--- NOTE | 2020-01-04 20:40 | PDOC.EVN ---
Event Note - Event Note Event Note: [id number] HP
[2020-01-04] MEDS ORDERED: HYDROcodone/Acetaminophen 10/325 mg Tablet PO PRN (20:42)
[2020-01-04] MEDS: metroNIDAZOLE 500 MG in Premix Bag 1 BAG IVPB SCH (21:21)
[2020-01-04] MEDS: Sodium Chloride 0.9% 1,000 ML IV SCH (21:21)
[2020-01-04] MEDS ORDERED: Lorazepam 1 MG TAB PO SCH (22:00)
[2020-01-04] MEDS ORDERED: Vancomycin HCl 1 GM in Sodium Chloride 0.9% 250 ML 300 ML IVPB SCH (22:00)
[2020-01-04] MEDS ORDERED: tiZANidine HCl 4 MG TAB PO SCH (22:00)
[2020-01-04 22:05] VITALS: BMI 26.4
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
[2020-01-05] MEDS ORDERED: Cefepime 2 GM in Sodium Chloride 0.9% 100 ML IVPB SCH (05:00)
[2020-01-05 05:08] LABS: #Basophils 0.1 thou/uL (0.0-0.2); #Eosinphils 0.1 thou/uL (0.0-0.7); #Lymphocytes 0.4 thou/uL (1.20-3.40); #Monocytes 0.6 thou/uL (0.11-0.59); #Neutrophils 12.8 thou/uL (1.40-6.50); %Basophils 0.7 % (0.0-1.0); %Eosinophils 0.9 % (0.0-10.0); %Lymphocytes 2.5 % (21.0-51.0); %Monocytes 4.2 % (0.0-10.0); %Neutrophils 91.7 % (42.0-75.0); Mean Corpuscular HGB CONC 32.1 g/dL (32.0-36.0); Mean Corpuscular Hemoglobin 32.6 pg (27.0-31.0); Mean Platelet Volume 7.6 fL (7.4-10.4); Platelet Count 283 thou/uL (130-400); RBC Distribution Width 13.1 % (11.5-14.5); Red Blood Cell (RBC) Count 3.06 mill/uL (4.70-6.10); White Blood Cell (WBC) Count 13.9 thou/uL (4.8-10.8)
[2020-01-05] MEDS: metroNIDAZOLE 500 MG in Premix Bag 1 BAG IVPB SCH ×3 (05:12→21:01)
[2020-01-05] MEDS: HYDROcodone/Acetaminophen 10/325 mg Tablet PO PRN ×4 (05:17→19:33)
[2020-01-05] MEDS: Cefepime 1 GM in Sodium Chloride 0.9% 100 ML IVPB SCH ×2 (05:26→18:17)
[2020-01-05 05:28] LABS: Anion Gap 13 mmol/L (10-20); BUN (Urea Nitrogen) 15 mg/dL (8.9-20.6); Calc. Creatinine Clearance 106 mL/min (70-130); Calcium 8.3 mg/dL (7.8-10.44); Carbon Dioxide 23 mmol/L (22-29); Chloride 104 mmol/L (98-107); Estimated GFR-MDRD 71; Glucose 114 mg/dL (70-105); Potassium 3.6 mmol/L (3.5-5.1); Sodium 136 mmol/L (136-145)
[2020-01-05] MEDS: Vancomycin 1 GM in Premix Bag 1 BAG IVPB SCH ×2 (06:45→19:20)
[2020-01-05] MEDS: Enoxaparin Sodium 40 MG/0.4 ML SYRINGE SC SCH (08:54)
[2020-01-05] MEDS: Sodium Chloride 0.9% 1,000 ML IV SCH ×2 (08:54→14:22)
--- NOTE | 2020-01-05 09:39 | CON ---
DATE OF CONSULTATION: 01/05/2020 CHIEF COMPLAINT: Left knee infection. HISTORY OF PRESENT ILLNESS: Mr. Johnson is a 49-year-old male who has had a history of complications with his left proximal tibia fracture. He had initial open reduction and internal fixation back in June. Unfortunately, this became infected and required wound care as well as hardware removal and conversion to an intramedullary nail. This was accomplished approximately 1 month ago. The patient has been on a wound VAC. He has been doing okay until 2 days ago. He began having increased pain, swelling, redness, and drainage from his knee. He presented to the emergency department yesterday and was admitted. Vancomycin and cefepime have been started. He did have high fevers at 102. His COVID test is pending. PAST MEDICAL HISTORY: Anxiety and depression as well as leg injury as per HPI. PAST SURGICAL HISTORY: As per HPI. Multiple left tibial surgeries. FAMILY MEDICAL HISTORY: Noncontributory. SOCIAL HISTORY: The patient uses tobacco, alcohol, and drugs. REVIEW OF SYSTEMS: Positive for left knee pain. PHYSICAL EXAMINATION: VITAL SIGNS: Temperature is 99.2, pulse is 93, respiratory rate is 18, blood pressure is 103/61. GENERAL: He is alert, lying supine, in no apparent distress. HEENT: Normocephalic, atraumatic. RESPIRATORY: Breathing comfortably. MUSCULOSKELETAL: The patient's left leg has a wound VAC, which was removed. There is copious purulent drainage. This is coming from a deep fistula at the anterolateral aspect of the leg, likely travels down to the bone. There is purulent and putrid smell. There is granulating tissue around the wound. He is neurovascularly intact distally. IMPRESSION: Left tibial plateau fracture with ongoing infection and worsening purulent drainage. PLAN: At this point, the patient will need to go to the operating room. We will take him tomorrow for irrigation and debridement of the wound. He will likely need debridement down to the bony level. We will need to remove his intramedullary nail as it is likely infected. I will plan to place an antibiotic nail in the canal to treat his intramedullary infection. He will need long-term antibiotic treatment. He is at high risk for ongoing complications, which would include ongoing wound complications, nonunion, possibly even amputation if he cannot clear his infection. He will be n.p.o. at midnight. Job ID: [id number]
--- NOTE | 2020-01-05 10:23 | RAD ---
LEFT TIBIA FIBULA 2 VIEWS: HISTORY: Wound infection. COMPARISON: Radiograph 12/05/2019. FINDINGS: There is pretibial soft tissue gas. There is extensive pretibial soft tissue swelling. Intermedulla ry nail through the tibia appears similar with the proximal locking screws proud of the cortex. The proximal fibular mass-filled fracture is not healing adequately and is overriding. There are erosion s of the anterior tibial rim with some osteopenia of the femoral condyles. The tibial fracture is not healing proper with minimal bridging bone formation. IMPRESSION: 1. Soft tissue gas and swelling in the pretibial soft tissues near the locking screws which are prou d of the cortex. 2. Some erosions of the anterior tibial rim as well some osteopenia of the femoral condyle concernin g for underlying osteomyelitis. 3. Poorly healing tibial and fibular fractures. POS: HOME
[2020-01-05 11:41] LABS: SARS-CoV-2 MS2 Positive; SARS-CoV-2 N Gene Negative; SARS-CoV-2 S Gene Negative; SARS-CoV-2 by NAA Not Detected (NotDetected); SARS-CoV-2 orf1ab Negative
--- NOTE | 2020-01-05 15:32 | PDOC.HOSPP ---
- Subjective Encounter Date: 01/05/20 Encounter Time: 15:25 Subjective: f/u for infected L prox tibia IM nail with sepsis receiving Cefepime/ Metronidazole/Vancomycin. Plan for removal of current hardware and continuing IV abx. - Objective Vital Signs & Weight: Vital Signs (12 hours) Temp Pulse Resp BP Pulse Ox 01/05/20 15:14 98.1 F 99 14 115/60 92 L 01/05/20 10:46 98.3 F 86 14 98/61 92 L 01/05/20 08:59 97.6 F 87 16 98/63 92 L 01/05/20 04:35 99.2 F 93 18 103/61 95 Weight Admit Weight 200 lb 9.93 oz Weight 200 lb 9.93 oz I&O: 01/04/20 01/05/20 01/06/20 06:59 06:59 06:59 Intake Total 530 Balance 530 Result Diagrams: 01/05/20 04:51 01/05/20 04:51 Additional Labs: Microbiology 01/04/20 16:08 Venous blood - Right Arm Blood Culture - Preliminary Specimen has been received and culture in progress. No Growth to date. 01/04/20 16:08 Venous blood - Left Arm Blood Culture - Preliminary Specimen has been received and culture in progress. No Growth to date. Laboratory Tests 01/04/20 01/04/20 01/04/20 16:08 16:08 19:50 WBC 16.3 H Neutrophils % 93.0 H Sodium 132 L Creatinine 1.98 H C-Reactive Protein 50.99 H COVID-19 PCR Not Detected 01/05/20 04:51 WBC Neutrophils % 91.7 H Sodium Creatinine C-Reactive Protein COVID-19 PCR Hospitalist ROS - Medication Medications: Active Medications Generic Name Dose Route Start Last Admin Trade Name Freq PRN Reason Stop Dose Admin Hydrocodone Bitart/Acetaminophen 2 tab 01/04/20 23:27 01/05/20 14:18 [place] 10/325 PO 2 tab Q4H PRN Administration Moderate to Severe Pain (6-10) Enoxaparin Sodium 40 mg 01/05/20 09:00 01/05/20 08:54 Lovenox SC 40 mg 0900 WALT Administration Metronidazole 500 mg/ Device 100 mls @ 100 mls/hr 01/04/20 22:00 01/05/20 14: 18 IVPB 100 mls Q8HR WALT Administration Sodium Chloride 1,000 mls @ 100 mls/hr 01/04/20 20:00 01/05/20 14:22 Normal Saline 0.9% IV Not Given .Q10H WALT Vancomycin HCl 1 gm/ Device 200 mls @ 200 mls/hr 01/05/20 06:00 01/05/20 06: 45 IVPB 200 mls 0600,1800 WALT Administration Cefepime HCl 1 gm/ Sodium 100 mls @ 200 mls/hr 01/05/20 05:00 01/05/20 05:26 Chloride IVPB 100 mls 0500,1700 WALT Administration Sodium Chloride 10 ml 01/04/20 21:00 01/05/20 08:55 Flush - Normal Saline IVF 10 ml Q12HR WALT Administration - Exam General Appearance: NAD, awake alert Eye: PERRL, anicteric sclera ENT: normocephalic atraumatic, no oropharyngeal lesions Neck: supple, symmetric, no JVD, no thyromegaly, no lymphadenopathy Heart: RRR, no murmur, no gallops, no rubs, normal peripheral pulses Heart - other findings: S1, S2 Respiratory: CTAB, no wheezes, no rales, no ronchi, normal chest expansion Gastrointestinal: soft, non-tender, non-distended, normal bowel sounds, no palpable masses Extremities: no cyanosis, no clubbing Extremities - other findings: LLE with post surgical changes, purulence of proximal tibia Neurological: cranial nerve grossly intact, no new deficit Musculoskeletal: normal tone, normal strength Psychiatric: normal affect, A&O x 3 Hosp A/P (1) Osteomyelitis of left lower extremity Code(s): M86.9 - OSTEOMYELITIS, UNSPECIFIED Status: Acute Plan: Acute/chronic osteomyelitis with infected hardware after proximal tibial plateau fracture, continue Cefepime/Metronidazole/Vancomycin, plan for removal of hardware with washout 01/06/20 (2) Sepsis Code(s): A41.9 - SEPSIS, UNSPECIFIED ORGANISM Status: Acute Plan: Secondary to #1, see above, continue IV abx coverage (3) SHY (acute kidney injury) Code(s): N17.9 - ACUTE KIDNEY FAILURE, UNSPECIFIED Status: Acute Plan: Continue IVF's, avoid nephrotoxic meds and limit contrast exposure (4) Normocytic anemia Code(s): D64.9 - ANEMIA, UNSPECIFIED Status: Chronic Plan: Stable currently, no active blood loss identified, serial H/H monitoring - Plan continue antibiotics, PT/OT, social services counselor Stable currently Continue Cefepime/Metronidazole/Vancomycin Continue IVF's Add Morphine Sulfate IV WCT for local care NPO after MN AM lab: CMP, CBC
[2020-01-05] MEDS ORDERED: Albuterol Sulfate 1.25 MG/3 ML NEB NEB PRN (20:15)
[2020-01-05] MEDS: Morphine 2 MG/ML VIAL SLOW IVP PRN (20:52)
[2020-01-05] MEDS: Nicotine 7 MG PATCH TD SCH (20:53)
[2020-01-06] MEDS: Sodium Chloride 0.9% 1,000 ML IV SCH ×3 (01:45→23:00)
[2020-01-06] MEDS: Morphine 2 MG/ML VIAL SLOW IVP PRN ×2 (03:28→08:02)
[2020-01-06] MEDS: Cefepime 1 GM in Sodium Chloride 0.9% 100 ML IVPB SCH ×2 (04:11→20:35)
[2020-01-06] MEDS: HYDROcodone/Acetaminophen 10/325 mg Tablet PO PRN ×2 (04:14→10:45)
[2020-01-06] MEDS: metroNIDAZOLE 500 MG in Premix Bag 1 BAG IVPB SCH ×3 (05:08→23:08)
[2020-01-06 05:13] LABS: #Eosinphils 0.2 thou/uL (0.0-0.7); #Lymphocytes 0.9 thou/uL (1.20-3.40); #Monocytes 0.5 thou/uL (0.11-0.59); #Neutrophils 7.2 thou/uL (1.40-6.50); %Basophils 0.2 % (0.0-1.0); %Eosinophils 1.9 % (0.0-10.0); %Lymphocytes 9.8 % (21.0-51.0); %Monocytes 5.3 % (0.0-10.0); %Neutrophils 82.8 % (42.0-75.0); Hemoglobin 9.6 g/dL (14.0-18.0); Mean Corpuscular HGB CONC 32.3 g/dL (32.0-36.0); Mean Corpuscular Hemoglobin 33.1 pg (27.0-31.0); Mean Platelet Volume 7.4 fL (7.4-10.4); Platelet Count 304 thou/uL (130-400); RBC Distribution Width 13.3 % (11.5-14.5); White Blood Cell (WBC) Count 8.6 thou/uL (4.8-10.8)
[2020-01-06 05:24] LABS: Vancomycin, Trough 10.7 ug/mL
[2020-01-06 05:29] LABS: ALT (SGPT) Less than 7 U/L (8-55); AST (SGOT) 7 U/L (5-34); Albumin 2.7 g/dL (3.5-5.0); Alkaline Phosphatase 108 U/L (40-110); Anion Gap 9 mmol/L (10-20); BUN (Urea Nitrogen) 8 mg/dL (8.9-20.6); Bilirubin, Total 0.3 mg/dL (0.2-1.2); Calc. Creatinine Clearance 149 mL/min (70-130); Calcium 8.5 mg/dL (7.8-10.44); Carbon Dioxide 27 mmol/L (22-29); Chloride 106 mmol/L (98-107); Estimated GFR-MDRD Greater than 90; Globulin 2.7 g/dL (2.4-3.5); Glucose 109 mg/dL (70-105); Potassium 3.3 mmol/L (3.5-5.1); Protein, Total 5.4 g/dL (6.0-8.3); Sodium 139 mmol/L (136-145)
[2020-01-06] MEDS: Vancomycin HCl 1.25 GM in Sodium Chloride 0.9% 250 ML 250 ML IVPB SCH ×2 (06:54→22:54)
[2020-01-06] MEDS: Enoxaparin Sodium 40 MG/0.4 ML SYRINGE SC SCH (08:04)
[2020-01-06] MEDS ORDERED: Dexamethasone 20 MG/5 ML VIAL ONE (09:30)
[2020-01-06] MEDS ORDERED: Ondansetron PF 4 MG/2 ML Vial ONE (09:30)
[2020-01-06] MEDS ORDERED: Rocuronium Bromide 10 MG/ML (10ML VIAL) ONE (09:30)
[2020-01-06] MEDS ORDERED: Glycopyrrolate 0.2 MG/ML 5 ML SYRINGE ONE (09:30)
[2020-01-06] MEDS ORDERED: Lidocaine 1% PF 5 ML VIAL ONE (09:30)
[2020-01-06] MEDS ORDERED: PROPOFOL 200 MG/20 ML VIAL ONE (09:30)
[2020-01-06] MEDS ORDERED: Morphine 2 MG/ML VIAL ONE (14:42)
[2020-01-06] MEDS ORDERED: Sodium Chloride 0.9% 0 ML ONE (15:05)
[2020-01-06] MEDS ORDERED: Fentanyl 100 MCG/2 ML VIAL ONE (15:12)
[2020-01-06] MEDS ORDERED: HYDROmorphone 2 MG/ML VIAL SLOW IVP PRN (16:14)
[2020-01-06] MEDS ORDERED: Meperidine HCl/PF 25 MG/ML VIAL SLOW IVP PRN (16:14)
[2020-01-06] MEDS ORDERED: Promethazine HCl 25 MG/ML VIAL SLOW IVP PRN (16:14)
[2020-01-06] MEDS ORDERED: Promethazine HCl 25 MG/ML VIAL IM PRN ×2 (16:14→17:42)
--- NOTE | 2020-01-06 16:24 | PDOC.HOSPP ---
- Subjective Encounter Date: 01/06/20 Encounter Time: 16:30 Subjective: f/u for LLE osteomyelitis/cellulitis on current Cefepime/Flagyl/Vancomycin with I&D per Orthopedics today. - Objective Vital Signs & Weight: Vital Signs (12 hours) Temp Pulse Resp BP Pulse Ox 01/06/20 10:42 97.6 F 70 16 121/68 97 01/06/20 08:02 94 L 01/06/20 07:32 98.4 F 74 16 105/62 94 L Weight Admit Weight 200 lb 9.93 oz Weight 200 lb 9.93 oz I&O: 01/05/20 01/06/20 01/07/20 06:59 06:59 06:59 Intake Total 1830 Balance 1830 Result Diagrams: 01/07/20 05:02 01/06/20 04:59 Additional Labs: Microbiology 01/04/20 16:08 Venous blood - Right Arm Blood Culture - Preliminary Specimen has been received and culture in progress. No Growth to date. 01/04/20 16:08 Venous blood - Right Arm Blood Culture - Preliminary NO GROWTH AT 48 HOURS 01/04/20 16:08 Venous blood - Left Arm Blood Culture - Preliminary Specimen has been received and culture in progress. No Growth to date. 01/04/20 16:08 Venous blood - Left Arm Blood Culture - Preliminary NO GROWTH AT 48 HOURS Laboratory Tests 01/04/20 01/04/20 01/04/20 16:08 16:08 19:50 WBC 16.3 H Hgb Neutrophils % 93.0 H Sodium 132 L Creatinine 1.98 H C-Reactive Protein 50.99 H Vancomycin Trough COVID-19 PCR Not Detected 01/05/20 01/06/20 01/06/20 04:51 04:59 04:59 WBC 13.9 H Hgb 10.0 L Neutrophils % 91.7 H 82.8 H Sodium Creatinine C-Reactive Protein Vancomycin Trough 10.7 COVID-19 PCR Hospitalist ROS - Medication Medications: Active Medications Generic Name Dose Route Start Last Admin Trade Name Freq PRN Reason Stop Dose Admin Hydrocodone Bitart/Acetaminophen 2 tab 01/04/20 23:27 01/06/20 10:45 [place] 10/325 PO 2 tab Q4H PRN Administration Moderate to Severe Pain (6-10) Enoxaparin Sodium 40 mg 01/05/20 09:00 01/06/20 08:04 Lovenox SC Not Given 0900 WALT Metronidazole 500 mg/ Device 100 mls @ 100 mls/hr 01/04/20 22:00 01/06/20 05: 08 IVPB 100 mls Q8HR WALT Administration Sodium Chloride 1,000 mls @ 100 mls/hr 01/04/20 20:00 01/06/20 12:08 Normal Saline 0.9% IV Not Given .Q10H WALT Cefepime HCl 1 gm/ Sodium 100 mls @ 200 mls/hr 01/05/20 05:00 01/06/20 04:11 Chloride IVPB 100 mls 0500,1700 WALT Administration Vancomycin HCl 1.25 gm/ Sodium 250 mls @ 166.667 mls/hr 01/06/20 06:00 06:54 Chloride IVPB 250 mls 0600,1800 WALT Administration Morphine Sulfate 2 mg 01/05/20 15:56 01/06/20 08:02 Morphine SLOW IVP 2 mg Q4H PRN Administration Moderate to Severe Pain (6-10) Nicotine 7 mg 01/05/20 21:00 01/05/20 20:53 Nicoderm Patch TD 7 mg Q24HR WALT Administration Sodium Chloride 10 ml 01/04/20 21:00 01/06/20 08:04 Flush - Normal Saline IVF Not Given Q12HR WALT - Exam General Appearance: NAD, awake alert Eye: PERRL, anicteric sclera ENT: normocephalic atraumatic, no oropharyngeal lesions Neck: supple, symmetric, no JVD, no thyromegaly, no lymphadenopathy Heart: RRR, no murmur, no gallops, no rubs, normal peripheral pulses Heart - other findings: S1, S2 Respiratory: CTAB, no wheezes, no rales, no ronchi, normal chest expansion Gastrointestinal: soft, non-tender, non-distended, normal bowel sounds, no palpable masses Extremities: no cyanosis, no clubbing Extremities - other findings: surgical dressing of LLE Skin: normal turgor Neurological: cranial nerve grossly intact, no new deficit Musculoskeletal: normal tone, normal strength Psychiatric: normal affect, A&O x 3 Hosp A/P (1) Osteomyelitis of left lower extremity Code(s): M86.9 - OSTEOMYELITIS, UNSPECIFIED Status: Acute Plan: Continue Cefepime/Vancomycin/Flagyl, pain control as indicated, s/p I&D with washout and placement of antibiotic coated IM nail with Vanc/Tobramycin (2) Sepsis Code(s): A41.9 - SEPSIS, UNSPECIFIED ORGANISM Status: Acute Plan: Secondary to #1, continue routine sepsis protocol, Continue Cefepime/Flagyl/ Vancomycin, final wound cx results pending (3) SHY (acute kidney injury) Code(s): N17.9 - ACUTE KIDNEY FAILURE, UNSPECIFIED Status: Acute Plan: Resolving, continue IVF's, avoid nephrotoxic meds and limit contrast exposure (4) Normocytic anemia Code(s): D64.9 - ANEMIA, UNSPECIFIED Status: Chronic - Plan continue antibiotics, PT/OT, social welfare administrator, respiratory therapy Stable currently Continue Cefepime/Metronidazole/Vancomycin Continue IVF's Add Morphine Sulfate IV PRN WCT for local care AM lab: CMP, CBC
[2020-01-06] MEDS ORDERED: Mineral Oil Sterile 10ML 10 ML UDCUP ONE (16:27)
[2020-01-06] MEDS ORDERED: HYDROmorphone 2 MG/ML VIAL ONE (16:49)
[2020-01-06] MEDS ORDERED: Meperidine HCl/PF 25 MG/ML VIAL ONE (17:23)
[2020-01-06] MEDS ORDERED: HYDROmorphone 0.5 MG/0.5 ML SYRINGE ONE ×3 (17:41→18:28)
[2020-01-06] MEDS ORDERED: Naloxone HCl 0.4 mg/ml Vial IV PRN (17:42)
[2020-01-06] MEDS ORDERED: Zolpidem Tartrate 5 MG TAB PO PRN (17:42)
[2020-01-06] MEDS ORDERED: diphenhydrAMINE 50 MG/ML VIAL IM PRN (17:42)
[2020-01-06] MEDS ORDERED: diphenhydrAMINE 25 MG CAP PO PRN (17:42)
[2020-01-06] MEDS ORDERED: Ondansetron PF 4 MG/2 ML Vial IVP PRN (17:42)
[2020-01-06] MEDS ORDERED: diphenhydrAMINE 50 MG/ML VIAL IVP PRN (17:42)
[2020-01-06] MEDS ORDERED: Ketorolac Tromethamine 30 MG/ML VIAL IVP PRN (17:42)
[2020-01-06] MEDS ORDERED: Communication Order-Pharmacy FS SCH (17:45)
--- NOTE | 2020-01-06 19:37 | OP ---
DATE OF PROCEDURE: 01/06/2020 PROCEDURES PERFORMED: Left tibia intramedullary nail removal, left tibia irrigation and debridement for deep infection, left tibia antibiotic nail placement. PREOPERATIVE DIAGNOSIS: Infection of left proximal tibial fracture with intramedullary nail placed. POSTOPERATIVE DIAGNOSIS: Infection of left proximal tibial fracture with intramedullary nail placed. COMPLICATIONS: None. ESTIMATED BLOOD LOSS: 150 mL. PRECISION MECHANICAL INSTRUMENT MAKER: Pretty Spivey PA-C IMPLANTS: Synthes 8 mm tibial nail with antibiotic cement coating was utilized. The cement had 2 g of vancomycin and 1 g of tobramycin. INDICATIONS: Mr. Johnson is a 49-year-old male who has sustained a tibial plateau fracture in the past approximately 4 months ago. He has failed to heal. He had initial plate breakage and was converted to an intramedullary nail. Unfortunately, he has presented with infection of the proximal tibia. He has had wound dehiscence and is having an open drainage from his proximal tibial wound. He has been indicated for intramedullary nail removal, antibiotic bead and nail placement and debridement of wounds. Risk are extensive and to include further infection, osteomyelitis, nonunion, malunion, need for further surgery, and others. DESCRIPTION OF PROCEDURE: Mr. Johnson was identified in the preoperative holding area. His correct extremity was marked. He was carried to the operating room. He was positioned supine. General anesthesia was induced. A multidisciplinary time-out was performed. The left lower extremity was prepped and draped in sterile fashion. We began the procedure with removal of hardware. We incised the patient's proximal tibia over the Crosslock screws. Four Crosslock screws were removed using intraoperative x-ray guide removal. We then removed two distal Crosslock screws. At this point, we made an incision over the inferior patella and worked deeply down to the nail. We then inserted our nail removal device and backslapped the nail out of the proximal tibia. We took cultures prior to this. There was gross purulence throughout the proximal tibia including the bone and nail. We removed all hardware. We then thoroughly irrigated with copious lavage. 5 L of lavage was utilized. We debrided all wounds including the lateral dehiscence. At this point, we mixed cement on the back table and added our vancomycin. We then proceeded to a size 8 intramedullary nail with the vancomycin cement. Once this was fully hardened, we impacted this vancomycin nail into the canal, no cross lock screws were placed. We took x-ray images confirming nail placement. There were no complications. At this point, we thoroughly irrigated with copious lavage once more. We then closed all wounds in layers. A sterile dressing was applied. The patient was taken to the recovery room in good condition. Job ID: [id number] MTDD
[2020-01-06] MEDS: Nicotine 7 MG PATCH TD SCH (20:40)
--- NOTE | 2020-01-06 21:15 | RAD ---
Radiograph left leg tibia-fibula 2 views: 01/06/2020 HISTORY: 49-year-old male with infected hardware in left leg COMPARISON: 01/05/2020 FINDINGS: A total of 8 small [id number] fluoroscopic spot images obtained with C-arm. The intramedullary [place] l within the tibia is again noted. The proximal and distal locking screws have been removed. Again noted is the mildly displaced mildly comminuted oblique fracture of proximal tibial metaphysis. Again noted is the significantly displaced and overlapping proximal fibular diaphyseal fracture. IMPRESSION: Interval removal of proximal and distal locking screws from the tibial intramedullary nail.
[2020-01-06] MEDS ORDERED: Lorazepam 1 MG TAB PO PRN (21:44)
[2020-01-07] MEDS: metroNIDAZOLE 500 MG in Premix Bag 1 BAG IVPB SCH ×3 (05:14→21:30)
[2020-01-07 05:19] LABS: #Lymphocytes 0.6 thou/uL (1.20-3.40); #Monocytes 0.3 thou/uL (0.11-0.59); #Neutrophils 7.4 thou/uL (1.40-6.50); %Basophils 0.6 % (0.0-1.0); %Eosinophils 0.1 % (0.0-10.0); %Lymphocytes 7.4 % (21.0-51.0); %Monocytes 3.9 % (0.0-10.0); %Neutrophils 88.2 % (42.0-75.0); Mean Corpuscular HGB CONC 31.9 g/dL (32.0-36.0); Mean Corpuscular Hemoglobin 32.5 pg (27.0-31.0); Mean Platelet Volume 7.1 fL (7.4-10.4); Platelet Count 363 thou/uL (130-400); RBC Distribution Width 13.3 % (11.5-14.5); Red Blood Cell (RBC) Count 3.38 mill/uL (4.70-6.10); White Blood Cell (WBC) Count 8.4 thou/uL (4.8-10.8)
[2020-01-07] MEDS: Sodium Chloride 0.9% 1,000 ML IV SCH ×3 (08:23→23:20)
[2020-01-07] MEDS: Cefepime 1 GM in Sodium Chloride 0.9% 100 ML IVPB SCH ×2 (08:23→19:46)
[2020-01-07] MEDS: Enoxaparin Sodium 40 MG/0.4 ML SYRINGE SC SCH (08:24)
--- NOTE | 2020-01-07 09:43 | PDOC.HOSPP ---
- Subjective Encounter Date: 01/07/20 Encounter Time: 09:35 Subjective: f/u for LLE tibial osteomyelitis with infected IM nail s/p IM nail removal with placement of antibiotic coated IM nail and washout POD #1. Receiving Cefepime/ Vancomycin/Flagyl currently. Plan for PICC line placement in preparation for outpt IV abx therapy. - Objective Vital Signs & Weight: Vital Signs (12 hours) Temp Pulse Resp BP Pulse Ox 01/07/20 07:09 97.7 F 76 16 131/72 95 01/07/20 03:45 98.3 F 84 16 133/75 93 L Weight Admit Weight 200 lb 9.93 oz Weight 200 lb 9.93 oz I&O: 01/06/20 01/07/20 01/08/20 06:59 06:59 06:59 Intake Total 1830 2660 Output Total 600 Balance 1830 2060 Result Diagrams: 01/07/20 05:02 01/06/20 04:59 Additional Labs: Microbiology 01/06/20 16:00 Tibia - Left Bacterial Culture - Preliminary 01/04/20 16:08 Venous blood - Right Arm Blood Culture - Preliminary Specimen has been received and culture in progress. No Growth to date. 01/04/20 16:08 Venous blood - Right Arm Blood Culture - Preliminary NO GROWTH AT 48 HOURS 01/04/20 16:08 Venous blood - Left Arm Blood Culture - Preliminary Specimen has been received and culture in progress. No Growth to date. 01/04/20 16:08 Venous blood - Left Arm Blood Culture - Preliminary NO GROWTH AT 48 HOURS Laboratory Tests 01/04/20 01/04/20 01/04/20 16:08 16:08 19:50 WBC 16.3 H Hgb Neutrophils % 93.0 H Sodium 132 L Creatinine 1.98 H C-Reactive Protein 50.99 H Vancomycin Trough COVID-19 PCR Not Detected 01/05/20 01/06/20 01/06/20 04:51 04:59 04:59 WBC 13.9 H Hgb 10.0 L Neutrophils % 91.7 H 82.8 H Sodium Creatinine C-Reactive Protein Vancomycin Trough 10.7 COVID-19 PCR Hospitalist ROS - Medication Medications: Active Medications Generic Name Dose Route Start Last Admin Trade Name Freq PRN Reason Stop Dose Admin Enoxaparin Sodium 40 mg 01/05/20 09:00 01/07/20 08:24 Lovenox SC 40 mg 0900 WALT Administration Metronidazole 500 mg/ Device 100 mls @ 100 mls/hr 01/04/20 22:00 01/07/20 05: 14 IVPB 100 mls Q8HR WALT Administration Sodium Chloride 1,000 mls @ 100 mls/hr 01/04/20 20:00 01/07/20 08:23 Normal Saline 0.9% IV Not Given .Q10H WALT Cefepime HCl 1 gm/ Sodium 100 mls @ 200 mls/hr 01/07/20 08:00 01/07/20 08:23 Chloride IVPB 100 mls 0800,2000 WALT Administration Lorazepam 0.5 mg 01/06/20 21:44 01/06/20 21:49 Ativan PO 0.5 mg TID PRN Administration Anxiety Nicotine 7 mg 01/05/20 21:00 01/06/20 20:40 Nicoderm Patch TD 7 mg Q24HR WALT Administration Sodium Chloride 10 ml 01/04/20 21:00 01/07/20 08:24 Flush - Normal Saline IVF Not Given Q12HR WALT - Exam General Appearance: NAD, awake alert Eye: PERRL, anicteric sclera ENT: normocephalic atraumatic, no oropharyngeal lesions Neck: supple, symmetric, no JVD, no thyromegaly, no lymphadenopathy Heart: RRR, no murmur, no gallops, no rubs, normal peripheral pulses Heart - other findings: S1, S2 Respiratory: CTAB, no wheezes, no rales, no ronchi, normal chest expansion Gastrointestinal: soft, non-tender, non-distended, normal bowel sounds, no palpable masses Extremities: no cyanosis, no clubbing, 2+ LE edema Extremities - other findings: LLE with surgical dressing in place Skin: normal turgor Neurological: cranial nerve grossly intact, no new deficit Musculoskeletal: normal tone, generalized weakness Psychiatric: normal affect, A&O x 3 Hosp A/P (1) Osteomyelitis of left lower extremity Code(s): M86.9 - OSTEOMYELITIS, UNSPECIFIED Status: Acute Plan: Continue Cefepime/Vancomycin/Flagyl, plan for PICC line placement with fci IV abx treatment, ID consulted, s/p IM Nail removal and washout with placement of abx coated IM nail POD #1, pain control with Fentanyl CONFERENCE SERVICE COORDINATOR (2) Sepsis Code(s): A41.9 - SEPSIS, UNSPECIFIED ORGANISM Status: Acute Plan: Continue supportive mgmt, IV abx (3) SHY (acute kidney injury) Code(s): N17.9 - ACUTE KIDNEY FAILURE, UNSPECIFIED Status: Acute Plan: Resolving, avoid nephrotoxic meds and limit contrast, decrease IVF's 75ml/h (4) Normocytic anemia Code(s): D64.9 - ANEMIA, UNSPECIFIED Status: Chronic - Plan continue antibiotics, PT/OT, social director, incentive spirometry, DVT proph w/ SCDs Stable currently Continue Cefepime/Metronidazole/Vancomycin Continue IVF's Fentanyl CONFERENCE SERVICE COORDINATOR PICC line placement today WCT for local care ID consult pending AM lab: BMP, CBC
--- NOTE | 2020-01-07 10:36 | SPC ---
Exam: Leftupper extremity ultrasound guided PICC line HISTORY: TPN, IV antibiotics Exposure:0.1 minutes; 670 mg/sq cm FINDINGS: Lumen: Singlelumen Trim length: 47 cm Distal tip:Right atrium Catheter flushes and aspirates without difficulty TECHNIQUE: Consent obtained to perform a left upper extremity PICC line with ultrasound guidance. Le ftarm was prepped and draped in a sterile fashion. 1% lidocaine, buffered with sodium bicarbonate was used for local anesthesia. Under ultrasound guidance, micropuncture needle was used to cannulate thebasilicvein. A 0.018 guidewire was advanced through the needle to level of the superior vena cava. Wire was advanced to the right atrium. Single-lumen 5 [place] catheter was advanced over the wir e. Distal tip terminates in the right atrium. Single lumen flushes and aspirates without difficulty. Patient tolerated the procedure well. No immediate or postprocedure complications IMPRESSION: Successfulleftupper surgery PICC line placement with ultrasound guidance
[2020-01-07] MEDS: Vancomycin HCl 1.25 GM in Sodium Chloride 0.9% 250 ML 250 ML IVPB SCH ×2 (12:05→23:19)
[2020-01-07] MEDS: fentaNYL Citrate/PF 2,000 MCG in Sodium Chloride 0.9% 60 ML IV PRN (16:26)
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
[2020-01-07] MEDS: Nicotine 7 MG PATCH TD SCH (21:31)
[2020-01-07 22:47] LABS: Vancomycin, Trough 10.9 ug/mL
[2020-01-08] MEDS: metroNIDAZOLE 500 MG in Premix Bag 1 BAG IVPB SCH ×3 (05:33→21:24)
[2020-01-08 06:37] LABS: #Eosinphils 0.1 thou/uL (0.0-0.7); #Lymphocytes 1.7 thou/uL (1.20-3.40); #Monocytes 0.7 thou/uL (0.11-0.59); #Neutrophils 3.9 thou/uL (1.40-6.50); %Basophils 0.7 % (0.0-1.0); %Eosinophils 1.5 % (0.0-10.0); %Monocytes 10.4 % (0.0-10.0); %Neutrophils 61.4 % (42.0-75.0); Hemoglobin 10.6 g/dL (14.0-18.0); Mean Corpuscular HGB CONC 31.9 g/dL (32.0-36.0); Mean Corpuscular Hemoglobin 32.6 pg (27.0-31.0); Mean Platelet Volume 6.8 fL (7.4-10.4); Platelet Count 340 thou/uL (130-400); RBC Distribution Width 13.4 % (11.5-14.5); Red Blood Cell (RBC) Count 3.27 mill/uL (4.70-6.10); White Blood Cell (WBC) Count 6.4 thou/uL (4.8-10.8)
[2020-01-08 07:00] LABS: Anion Gap 12 mmol/L (10-20); BUN (Urea Nitrogen) 9 mg/dL (8.9-20.6); Calc. Creatinine Clearance 153 mL/min (70-130); Calcium 8.5 mg/dL (7.8-10.44); Carbon Dioxide 29 mmol/L (22-29); Chloride 102 mmol/L (98-107); Estimated GFR-MDRD Greater than 90; Glucose 127 mg/dL (70-105); Potassium 3.1 mmol/L (3.5-5.1); Sodium 140 mmol/L (136-145)
[2020-01-08] MEDS ORDERED: HYDROcodone/Acetaminophen 10/325 mg Tablet PO PRN (07:45)
[2020-01-08] MEDS ORDERED: diphenhydrAMINE 25 MG CAP PO PRN (07:45)
[2020-01-08] MEDS: Cefepime 1 GM in Sodium Chloride 0.9% 100 ML IVPB SCH ×2 (08:46→20:17)
[2020-01-08] MEDS: Gabapentin 400 MG CAP PO SCH ×4 (08:47→20:19)
[2020-01-08] MEDS: Sodium Chloride 0.9% 1,000 ML IV SCH (08:47)
[2020-01-08] MEDS: Aspirin 81 mg Enteric Coated Tablet PO SCH (08:48)
[2020-01-08] MEDS: Diclofenac Sodium 50 MG DR TAB PO SCH ×2 (08:48→20:18)
[2020-01-08] MEDS: tiZANidine HCl 4 MG TAB PO SCH ×3 (08:48→20:18)
[2020-01-08] MEDS: PARoxetine 20 MG TAB PO SCH (08:49)
[2020-01-08] MEDS: Enoxaparin Sodium 40 MG/0.4 ML SYRINGE SC SCH (08:50)
[2020-01-08] MEDS ORDERED: Lorazepam 0.5 MG TAB PO SCH (09:00)
[2020-01-08] MEDS: Vancomycin HCl 1.25 GM in Sodium Chloride 0.9% 250 ML 250 ML IVPB SCH ×3 (09:55→23:32)
[2020-01-08] MEDS: Lorazepam 1 MG TAB PO SCH ×3 (10:29→20:19)
[2020-01-08] MEDS ORDERED: Potassium Chloride 20 MEQ TAB PO SCH (10:30)
--- NOTE | 2020-01-08 12:24 | PDOC.HOSPP ---
- Subjective Encounter Date: 01/08/20 Encounter Time: 12:20 Subjective: f/u for LLE osteomyelitis s/p IM nail removal with subsequent washout and replacement with antibiotic coated IM nail of the tibia POD #3. Receiving Metronidazole/Cefepime/Vancomycin. - Objective Vital Signs & Weight: Vital Signs (12 hours) Temp Pulse Resp BP Pulse Ox 01/08/20 10:42 98.0 F 63 16 101/61 93 L 01/08/20 07:51 97.9 F 64 16 157/82 H 96 01/08/20 04:49 98.0 F 67 16 119/69 96 Weight Admit Weight 200 lb 9.93 oz Weight 200 lb 9.93 oz I&O: 01/07/20 01/08/20 01/09/20 06:59 06:59 06:59 Intake Total 2660 2775 900 Output Total 600 3225 Balance 2060 -450 900 Result Diagrams: 01/08/20 06:21 01/08/20 06:21 Additional Labs: Microbiology 01/06/20 16:00 Tibia - Left Bacterial Culture - Preliminary 01/04/20 16:08 Venous blood - Right Arm Blood Culture - Preliminary Specimen has been received and culture in progress. No Growth to date. 01/04/20 16:08 Venous blood - Right Arm Blood Culture - Preliminary NO GROWTH AT 48 HOURS 01/04/20 16:08 Venous blood - Left Arm Blood Culture - Preliminary Specimen has been received and culture in progress. No Growth to date. 01/04/20 16:08 Venous blood - Left Arm Blood Culture - Preliminary NO GROWTH AT 48 HOURS Laboratory Tests 01/04/20 01/04/20 01/04/20 16:08 16:08 19:50 WBC 16.3 H Hgb Neutrophils % 93.0 H Sodium 132 L Creatinine 1.98 H C-Reactive Protein 50.99 H Vancomycin Trough COVID-19 PCR Not Detected 01/05/20 01/06/20 01/06/20 04:51 04:59 04:59 WBC 13.9 H Hgb 10.0 L Neutrophils % 91.7 H 82.8 H Sodium Creatinine C-Reactive Protein Vancomycin Trough 10.7 COVID-19 PCR Hospitalist ROS - Medication Medications: Active Medications Generic Name Dose Route Start Last Admin Trade Name Freq PRN Reason Stop Dose Admin Aspirin 81 mg 01/08/20 09:00 01/08/20 08:48 Ecotrin PO 81 mg DAILY WALT Administration Diclofenac Sodium 75 mg 01/08/20 09:00 01/08/20 08:48 Voltaren PO 75 mg BID WALT Administration Enoxaparin Sodium 40 mg 01/05/20 09:00 01/08/20 08:50 Lovenox SC 40 mg 0900 WALT Administration Gabapentin 800 mg 01/08/20 09:00 01/08/20 08:47 Neurontin PO 800 mg QID WALT Administration Metronidazole 500 mg/ Device 100 mls @ 100 mls/hr 01/04/20 22:00 01/08/20 05: 33 IVPB 100 mls Q8HR WALT Administration Fentanyl Citrate 2,000 mcg/ 100 mls @ 0 mls/hr 01/06/20 17:42 01/07/20 16:26 Sodium Chloride IV 100 mls INF PRN Administration Pain As Directed Cefepime HCl 1 gm/ Sodium 100 mls @ 200 mls/hr 01/07/20 08:00 01/08/20 08:46 Chloride IVPB 100 mls 0800,2000 WALT Administration Sodium Chloride 1,000 mls @ 75 mls/hr 01/07/20 10:01 01/08/20 08:47 Normal Saline 0.9% IV 1,000 mls .[id number] WALT Administration Vancomycin HCl 1.25 gm/ Sodium 250 mls @ 166.667 mls/hr 01/08/20 08:00 09:55 Chloride IVPB 250 mls 0800,1600,2359 WALT Administration Ketorolac Tromethamine 30 mg 01/06/20 17:42 01/07/20 21:31 Toradol IVP 01/09/20 17:43 30 mg Q6H PRN Administration Moderate Pain (4-6) Lorazepam 0.5 mg 01/08/20 15:00 01/08/20 10:29 Ativan PO 0.5 mg TID WALT Administration Nicotine 7 mg 01/05/20 21:00 01/07/20 21:31 Nicoderm Patch TD 7 mg Q24HR WALT Administration Paroxetine HCl 40 mg 01/08/20 09:00 01/08/20 08:49 Paxil PO 40 mg DAILY WALT Administration Potassium Chloride 40 meq 01/08/20 10:30 01/08/20 10:29 K-Dur PO 01/08/20 13:00 40 meq NOW WALT Administration Sodium Chloride 10 ml 01/04/20 21:00 01/08/20 08:51 Flush - Normal Saline IVF 10 ml Q12HR WALT Administration Tizanidine HCl 8 mg 01/08/20 09:00 01/08/20 08:48 Zanaflex PO 8 mg TID WALT Administration - Exam General Appearance: NAD, awake alert Eye: PERRL, anicteric sclera ENT: normocephalic atraumatic, no oropharyngeal lesions Neck: supple, symmetric, no JVD, no thyromegaly, no lymphadenopathy Heart: RRR, no murmur, no gallops, no rubs, normal peripheral pulses Heart - other findings: S1, S2 Respiratory: CTAB, no wheezes, no rales, no ronchi, normal chest expansion Gastrointestinal: soft, non-tender, non-distended, normal bowel sounds, no palpable masses Extremities: no cyanosis Extremities - other findings: LLE with surgical wound/wound vac in place Skin: normal turgor Neurological: cranial nerve grossly intact, no new deficit Musculoskeletal: normal tone, normal strength Psychiatric: normal affect, A&O x 3 Hosp A/P (1) Osteomyelitis of left lower extremity Code(s): M86.9 - OSTEOMYELITIS, UNSPECIFIED Status: Acute Plan: Staph spp noted on initial cx, await final sensitivities, will need outpt IV abx therapy (2) Sepsis Code(s): A41.9 - SEPSIS, UNSPECIFIED ORGANISM Status: Acute Plan: Resolving (3) SHY (acute kidney injury) Code(s): N17.9 - ACUTE KIDNEY FAILURE, UNSPECIFIED Status: Acute Plan: Resolved (4) Normocytic anemia Code(s): D64.9 - ANEMIA, UNSPECIFIED Status: Chronic (5) Tobacco abuse Code(s): Z72.0 - TOBACCO USE Status: Chronic - Plan continue antibiotics, PT/OT, director of social services, out of bed/ambulate Stable currently Continue Cefepime/Metronidazole/Vancomycin, await final wound cx sensitivities Saline lock IVF Fentanyl FLUE BLOWER PICC line placement completed WCT for local care ID consult appreciated CM for coordination of HH with infusion services
[2020-01-08] MEDS: fentaNYL Citrate/PF 2,000 MCG in Sodium Chloride 0.9% 60 ML IV PRN (17:41)
[2020-01-08] MEDS: Nicotine 7 MG PATCH TD SCH (20:19)
[2020-01-08 23:22] LABS: Vancomycin, Trough 25.6 ug/mL
[2020-01-09] MEDS: Sodium Chloride 0.9% 1,000 ML IV SCH ×2 (04:21→08:54)
[2020-01-09] MEDS: metroNIDAZOLE 500 MG in Premix Bag 1 BAG IVPB SCH ×2 (05:33→14:38)
[2020-01-09 08:36] LABS: Vancomycin, Random 22.5 ug/mL (See Comment)
[2020-01-09] MEDS: Vancomycin 1 GM in Premix Bag 1 BAG IVPB SCH ×2 (08:49→16:09)
[2020-01-09] MEDS: tiZANidine HCl 4 MG TAB PO SCH ×3 (08:50→21:57)
[2020-01-09] MEDS: Gabapentin 400 MG CAP PO SCH ×4 (08:50→21:55)
[2020-01-09] MEDS: Diclofenac Sodium 50 MG DR TAB PO SCH ×2 (08:50→21:55)
[2020-01-09] MEDS: Aspirin 81 mg Enteric Coated Tablet PO SCH (08:51)
[2020-01-09] MEDS: PARoxetine 20 MG TAB PO SCH (08:51)
[2020-01-09] MEDS: Lorazepam 1 MG TAB PO SCH ×3 (08:52→21:56)
[2020-01-09] MEDS: Enoxaparin Sodium 40 MG/0.4 ML SYRINGE SC SCH (08:52)
[2020-01-09] MEDS: Cefepime 1 GM in Sodium Chloride 0.9% 100 ML IVPB SCH (11:18)
[2020-01-09] MEDS ORDERED: HYDROcodone/Acetaminophen 10/325 mg Tablet PO PRN ×3 (13:25→17:14)
--- NOTE | 2020-01-09 14:22 | PDOC.HOSPP ---
- Subjective Encounter Date: 01/09/20 Encounter Time: 14:15 Subjective: f/u for LLE osteomyelitis/cellulitis s/p removal of IM nail with subsequent washout and replacement of antibiotic impregnated IM nail POD #4. Remains on Vancomycin with wound cx showing MRSA spp. - Objective Vital Signs & Weight: Vital Signs (12 hours) Temp Pulse Resp BP Pulse Ox 01/09/20 13:47 92 L 01/09/20 11:40 98.3 F 87 16 126/70 90 L 01/09/20 07:47 97.9 F 72 18 157/91 H 94 L Weight Admit Weight 200 lb 9.93 oz Weight 200 lb 9.93 oz I&O: 01/08/20 01/09/20 01/10/20 06:59 06:59 06:59 Intake Total 2775 2125 900 Output Total 3225 1100 Balance -450 1025 900 Result Diagrams: 01/08/20 06:21 01/08/20 06:21 Additional Labs: Microbiology 01/06/20 16:00 Tibia - Left Bacterial Culture - Preliminary 01/06/20 16:00 Tibia - Left Anaerobic Culture - Preliminary Methicillin resistant S.aureus 01/06/20 16:00 Tibia - Left Bacterial Culture - Preliminary 01/04/20 16:08 Venous blood - Right Arm Blood Culture - Preliminary Specimen has been received and culture in progress. No Growth to date. 01/04/20 16:08 Venous blood - Right Arm Blood Culture - Preliminary NO GROWTH AT 48 HOURS 01/04/20 16:08 Venous blood - Left Arm Blood Culture - Preliminary Specimen has been received and culture in progress. No Growth to date. 01/04/20 16:08 Venous blood - Left Arm Blood Culture - Preliminary NO GROWTH AT 48 HOURS Laboratory Tests 01/04/20 01/04/20 01/04/20 16:08 16:08 19:50 WBC 16.3 H Hgb Neutrophils % 93.0 H Sodium 132 L Creatinine 1.98 H C-Reactive Protein 50.99 H Vancomycin Trough COVID-19 PCR Not Detected 01/05/20 01/06/20 01/06/20 04:51 04:59 04:59 WBC 13.9 H Hgb 10.0 L Neutrophils % 91.7 H 82.8 H Sodium Creatinine C-Reactive Protein Vancomycin Trough 10.7 COVID-19 PCR Hospitalist ROS - Medication Medications: Active Medications Generic Name Dose Route Start Last Admin Trade Name Freq PRN Reason Stop Dose Admin Aspirin 81 mg 01/08/20 09:00 01/09/20 08:51 Ecotrin PO 81 mg DAILY WALT Administration Diclofenac Sodium 75 mg 01/08/20 09:00 01/09/20 08:50 Voltaren PO 75 mg BID WALT Administration Enoxaparin Sodium 40 mg 01/05/20 09:00 01/09/20 08:52 Lovenox SC 40 mg 0900 WALT Administration Gabapentin 800 mg 01/08/20 09:00 01/09/20 13:52 Neurontin PO Not Given QID WALT Metronidazole 500 mg/ Device 100 mls @ 100 mls/hr 01/04/20 22:00 01/09/20 05: 33 IVPB 100 mls Q8HR WALT Administration Cefepime HCl 1 gm/ Sodium 100 mls @ 200 mls/hr 01/07/20 08:00 01/09/20 11:18 Chloride IVPB Not Given 0800,1999 WALT Sodium Chloride 1,000 mls @ 75 mls/hr 01/07/20 10:01 01/09/20 08:54 Normal Saline 0.9% IV 1,000 mls .[id number] WALT Administration Vancomycin HCl 1 gm/ Device 200 mls @ 200 mls/hr 01/09/20 09:00 01/09/20 08: 49 IVPB 200 mls 0100,0900,1700 WALT Administration Ketorolac Tromethamine 30 mg 01/06/20 17:42 01/07/20 21:31 Toradol IVP 01/09/20 17:43 30 mg Q6H PRN Administration Moderate Pain (4-6) Lorazepam 0.5 mg 01/08/20 15:00 01/09/20 08:52 Ativan PO 0.5 mg TID WALT Administration Nicotine 7 mg 01/05/20 21:00 01/08/20 20:19 Nicoderm Patch TD 7 mg Q24HR WALT Administration Paroxetine HCl 40 mg 01/08/20 09:00 01/09/20 08:51 Paxil PO 40 mg DAILY WALT Administration Sodium Chloride 10 ml 01/04/20 21:00 01/09/20 08:52 Flush - Normal Saline IVF 10 ml Q12HR WALT Administration Tizanidine HCl 8 mg 01/08/20 09:00 01/09/20 08:50 Zanaflex PO 8 mg TID WALT Administration - Exam General Appearance: NAD, awake alert Eye: PERRL, anicteric sclera ENT: normocephalic atraumatic, no oropharyngeal lesions Neck: supple, symmetric, no JVD, no thyromegaly, no lymphadenopathy Heart: RRR, no murmur, no gallops, no rubs, normal peripheral pulses Heart - other findings: S1, S2 Respiratory: CTAB, no wheezes, no rales, no ronchi, normal chest expansion Gastrointestinal: soft, non-tender, non-distended, normal bowel sounds, no palpable masses Extremities: no cyanosis, no clubbing, 1+ LE edema Extremities - other findings: LLE post-surgical changes, wound vac in place Skin: normal turgor Neurological: cranial nerve grossly intact, no new deficit Musculoskeletal: normal tone, normal strength, no muscle wasting Psychiatric: A&O x 3, flat affect Hosp A/P (1) Osteomyelitis of left lower extremity Code(s): M86.9 - OSTEOMYELITIS, UNSPECIFIED Status: Acute Plan: MRSA isolated from wound, continue Vancomycin for now, d/c Cefepime/ Metronidazole, plan for terminal make up operator IV abx per ID recommendations, continue wound vac (2) Sepsis Code(s): A41.9 - SEPSIS, UNSPECIFIED ORGANISM Status: Acute Plan: Resolving with treatment of #1 (3) SHY (acute kidney injury) Code(s): N17.9 - ACUTE KIDNEY FAILURE, UNSPECIFIED Status: Acute Plan: Resolved (4) Normocytic anemia Code(s): D64.9 - ANEMIA, UNSPECIFIED Status: Chronic Plan: Chronic, stable, no evidence of active loss (5) Tobacco abuse Code(s): Z72.0 - TOBACCO USE Status: Chronic Plan: Smoking cessation resources - Plan continue antibiotics, PT/OT, social work case manager, DVT proph w/SCDs Stable currently Continue Vancomycin, ID for consideration of terminal make up operator IV abx coverage Saline lock IVF PICC line placement completed WCT for local care ID consult appreciated CM for coordination of HH with infusion services D/C Metronidazole/Cefepime Likely d/c on 01/11
[2020-01-09] MEDS: HYDROcodone/Acetaminophen 10/325 mg Tablet PO PRN (21:57)
[2020-01-09] MEDS: Nicotine 7 MG PATCH TD SCH (22:40)
[2020-01-10] MEDS: Vancomycin 1 GM in Premix Bag 1 BAG IVPB SCH ×3 (01:08→18:32)
[2020-01-10] MEDS: HYDROcodone/Acetaminophen 10/325 mg Tablet PO PRN ×4 (05:12→22:40)
[2020-01-10] MEDS: Sodium Chloride 0.9% 1,000 ML IV SCH ×2 (06:12→21:26)
[2020-01-10 08:21] LABS: Vancomycin, Trough 19.5 ug/mL
[2020-01-10] MEDS: Diclofenac Sodium 50 MG DR TAB PO SCH ×2 (09:12→21:23)
[2020-01-10] MEDS: tiZANidine HCl 4 MG TAB PO SCH ×3 (09:12→21:24)
[2020-01-10] MEDS: PARoxetine 20 MG TAB PO SCH (09:13)
[2020-01-10] MEDS: Gabapentin 400 MG CAP PO SCH ×4 (09:13→21:24)
[2020-01-10] MEDS: Aspirin 81 mg Enteric Coated Tablet PO SCH (09:13)
[2020-01-10] MEDS: Lorazepam 1 MG TAB PO SCH ×3 (09:13→21:24)
[2020-01-10] MEDS: Enoxaparin Sodium 40 MG/0.4 ML SYRINGE SC SCH (09:16)
--- NOTE | 2020-01-10 11:25 | PDOC.HOSPP ---
- Subjective Encounter Date: 01/10/20 Encounter Time: 11:23 Subjective: Mr. Johnson was seen today in follow-up of MRSA infection of the lower extremity. He does not have any new complaints. - Objective Vital Signs & Weight: Vital Signs (12 hours) Temp Pulse Resp BP BP Pulse Ox 01/10/20 07:34 98.3 F 93 16 161/92 H 92 L 01/10/20 04:38 98.1 F 73 16 112/69 93 L 01/09/20 23:58 98.1 F 78 16 108/65 92 L Weight Admit Weight 200 lb 9.93 oz Weight 200 lb 9.93 oz I&O: 01/09/20 01/10/20 01/11/20 06:59 06:59 06:59 Intake Total 2125 2500 Output Total 1100 4500 Balance 1025 -2000 Result Diagrams: 01/08/20 06:21 01/08/20 06:21 Hospitalist ROS - Medication Medications: Active Medications Generic Name Dose Route Start Last Admin Trade Name Freq PRN Reason Stop Dose Admin Hydrocodone Bitart/Acetaminophen 2 tab 01/09/20 17:15 01/10/20 05:12 [place] 10/325 PO 2 tab Q4H PRN Administration Moderate to Severe Pain (6-10) Aspirin 81 mg 01/08/20 09:00 01/10/20 09:13 Ecotrin PO 81 mg DAILY WALT Administration Diclofenac Sodium 75 mg 01/08/20 09:00 01/10/20 09:12 Voltaren PO 75 mg BID WALT Administration Enoxaparin Sodium 40 mg 01/05/20 09:00 01/10/20 09:16 Lovenox SC 40 mg 0900 WALT Administration Gabapentin 800 mg 01/08/20 09:00 01/10/20 09:13 Neurontin PO 800 mg QID WALT Administration Sodium Chloride 1,000 mls @ 75 mls/hr 01/07/20 10:01 01/10/20 06:12 Normal Saline 0.9% IV Not Given .[id number] WALT Vancomycin HCl 1 gm/ Device 200 mls @ 200 mls/hr 01/09/20 09:00 01/10/20 09:11 IVPB 200 mls 0100,0900,1700 WALT Administration Lorazepam 0.5 mg 01/08/20 15:00 01/10/20 09:13 Ativan PO 0.5 mg TID WALT Administration Nicotine 7 mg 01/05/20 21:00 01/09/20 22:40 Nicoderm Patch TD 7 mg Q24HR WALT Administration Paroxetine HCl 40 mg 01/08/20 09:00 01/10/20 09:13 Paxil PO 40 mg DAILY WALT Administration Sodium Chloride 10 ml 01/04/20 21:00 01/10/20 01:34 Flush - Normal Saline IVF Not Given Q12HR WALT Tizanidine HCl 8 mg 01/08/20 09:00 01/10/20 09:12 Zanaflex PO 8 mg TID WALT Administration - Exam Eye: PERRL, anicteric sclera Heart: RRR, no murmur, no gallops, no rubs, normal peripheral pulses Respiratory: CTAB, no wheezes, no rales, no ronchi, normal chest expansion Gastrointestinal: soft, non-tender, non-distended, normal bowel sounds Extremities: no cyanosis Hosp A/P (1) MRSA infection Code(s): A49.02 - METHICILLIN RESIS STAPH INFECTION, UNSP SITE Status: Acute (2) Anemia Code(s): D64.9 - ANEMIA, UNSPECIFIED Status: Chronic (3) SHY (acute kidney injury) Code(s): N17.9 - ACUTE KIDNEY FAILURE, UNSPECIFIED Status: Acute - Plan * MRSA infection of the lower extremity- the chart was reviewed. Patient has had extensive surgery of the lower extremity, and removal of infected hardware. * Continue IV Vancomycin * Outpatient antibiotics are being arranged
[2020-01-10 12:33] LABS: Anion Gap 17 mmol/L (10-20); BUN (Urea Nitrogen) 10 mg/dL (8.9-20.6); Calc. Creatinine Clearance 138 mL/min (70-130); Calcium 8.5 mg/dL (7.8-10.44); Carbon Dioxide 23 mmol/L (22-29); Chloride 106 mmol/L (98-107); Estimated GFR-MDRD Greater than 90; Glucose 94 mg/dL (70-105); Potassium 4.9 mmol/L (3.5-5.1); Sodium 141 mmol/L (136-145)
[2020-01-10 16:04] LABS: #Basophils 0.1 thou/uL (0.0-0.2); #Eosinphils 0.3 thou/uL (0.0-0.7); #Lymphocytes 2.1 thou/uL (1.20-3.40); #Monocytes 0.8 thou/uL (0.11-0.59); #Neutrophils 7.5 thou/uL (1.40-6.50); %Basophils 0.6 % (0.0-1.0); %Eosinophils 2.6 % (0.0-10.0); %Lymphocytes 19.5 % (21.0-51.0); %Monocytes 7.1 % (0.0-10.0); %Neutrophils 70.2 % (42.0-75.0); Hemoglobin 11.8 g/dL (14.0-18.0); Mean Corpuscular HGB CONC 32.3 g/dL (32.0-36.0); Mean Platelet Volume 6.3 fL (7.4-10.4); Platelet Count 479 thou/uL (130-400); RBC Distribution Width 13.8 % (11.5-14.5); Red Blood Cell (RBC) Count 3.57 mill/uL (4.70-6.10); White Blood Cell (WBC) Count 10.7 thou/uL (4.8-10.8)
[2020-01-10] MEDS: Nicotine 7 MG PATCH TD SCH (22:41)
[2020-01-11] MEDS: Vancomycin 1 GM in Premix Bag 1 BAG IVPB SCH ×2 (00:11→16:12)
[2020-01-11] MEDS: HYDROcodone/Acetaminophen 10/325 mg Tablet PO PRN ×5 (03:48→22:32)
[2020-01-11] MEDS: Enoxaparin Sodium 40 MG/0.4 ML SYRINGE SC SCH (09:02)
[2020-01-11] MEDS: tiZANidine HCl 4 MG TAB PO SCH ×3 (09:02→22:27)
[2020-01-11] MEDS: Gabapentin 400 MG CAP PO SCH ×4 (09:04→22:24)
[2020-01-11] MEDS: Diclofenac Sodium 50 MG DR TAB PO SCH ×2 (09:04→22:26)
[2020-01-11] MEDS: Aspirin 81 mg Enteric Coated Tablet PO SCH (09:04)
[2020-01-11] MEDS: Lorazepam 1 MG TAB PO SCH ×3 (09:05→22:24)
[2020-01-11] MEDS: PARoxetine 20 MG TAB PO SCH (09:05)
[2020-01-11] MEDS: Sodium Chloride 0.9% 1,000 ML IV SCH ×2 (09:06→22:43)
[2020-01-11 09:49] LABS: Vancomycin, Trough 12.6 ug/mL
[2020-01-11] MEDS: Vancomycin HCl 1.25 GM in Sodium Chloride 0.9% 250 ML 250 ML IVPB SCH ×2 (11:59→18:15)
--- NOTE | 2020-01-11 18:51 | PDOC.HOSPP ---
- Subjective Encounter Date: 01/11/20 Encounter Time: 18:49 Subjective: Mr. Johnson was seen today in follow-up of MRSA infection. He does not have any new complaints. - Objective Vital Signs & Weight: Vital Signs (12 hours) Temp Pulse Resp BP Pulse Ox 01/11/20 16:16 97.9 F 93 18 111/68 92 L 01/11/20 11:13 98.1 F 97 18 117/68 91 L 01/11/20 08:00 91 L 01/11/20 07:32 98.0 F 94 18 116/72 91 L Weight Admit Weight 200 lb 9.93 oz Weight 200 lb 9.93 oz I&O: 01/10/20 01/11/20 01/12/20 06:59 06:59 06:59 Intake Total 2500 2800 Output Total 4500 4200 Balance -2000 -1400 Result Diagrams: 01/10/20 15:52 01/10/20 12:07 Hospitalist ROS - Medication Medications: Active Medications Generic Name Dose Route Start Last Admin Trade Name Freq PRN Reason Stop Dose Admin Hydrocodone Bitart/Acetaminophen 2 tab 01/09/20 17:15 01/11/20 18:18 [place] 10/325 PO 2 tab Q4H PRN Administration Moderate to Severe Pain (6-10) Aspirin 81 mg 01/08/20 09:00 01/11/20 09:04 Ecotrin PO 81 mg DAILY WALT Administration Diclofenac Sodium 75 mg 01/08/20 09:00 01/11/20 09:04 Voltaren PO 75 mg BID WALT Administration Enoxaparin Sodium 40 mg 01/05/20 09:00 01/11/20 09:02 Lovenox SC 40 mg 0900 WALT Administration Gabapentin 800 mg 01/08/20 09:00 01/11/20 18:15 Neurontin PO 800 mg QID WALT Administration Sodium Chloride 1,000 mls @ 75 mls/hr 01/07/20 10:01 01/11/20 09:06 Normal Saline 0.9% IV Not Given .[id number] WALT Vancomycin HCl 1.25 gm/ Sodium 250 mls @ 166.667 mls/hr 01/11/20 11:00 18:15 Chloride IVPB 250 mls 0300,1100,1900 WALT Administration Lorazepam 0.5 mg 01/08/20 15:00 01/11/20 14:11 Ativan PO 0.5 mg TID WALT Administration Nicotine 7 mg 01/05/20 21:00 01/10/20 22:41 Nicoderm Patch TD 7 mg Q24HR WALT Administration Paroxetine HCl 40 mg 01/08/20 09:00 01/11/20 09:05 Paxil PO 40 mg DAILY WALT Administration Sodium Chloride 10 ml 01/04/20 21:00 01/11/20 09:06 Flush - Normal Saline IVF 10 ml Q12HR WALT Administration Tizanidine HCl 8 mg 01/08/20 09:00 01/11/20 14:11 Zanaflex PO 8 mg TID WALT Administration - Exam Eye: PERRL, anicteric sclera Heart: RRR, no murmur, no gallops, no rubs, normal peripheral pulses Respiratory: CTAB, no wheezes, no rales, no ronchi, normal chest expansion, no tachypnea Gastrointestinal: soft, non-tender, non-distended, normal bowel sounds, no palpable masses, no hepatomegaly, no splenomegaly Extremities: no cyanosis (left leg is wrapped, and wound vac in place) Hosp A/P (1) MRSA infection Code(s): A49.02 - METHICILLIN RESIS STAPH INFECTION, UNSP SITE Status: Acute (2) Anemia Code(s): D64.9 - ANEMIA, UNSPECIFIED Status: Chronic (3) SHY (acute kidney injury) Code(s): N17.9 - ACUTE KIDNEY FAILURE, UNSPECIFIED Status: Acute - Plan * No new recommendations * MRSA infection of the lower extremity- he is s/p removal of infected hardware * Continue IV Vancomycin * Outpatient antibiotics are being arranged
[2020-01-11] MEDS: Nicotine 7 MG PATCH TD SCH (22:27)
[2020-01-12] MEDS: HYDROcodone/Acetaminophen 10/325 mg Tablet PO PRN ×4 (03:28→20:50)
[2020-01-12] MEDS: Vancomycin HCl 1.25 GM in Sodium Chloride 0.9% 250 ML 250 ML IVPB SCH (03:28)
[2020-01-12] MEDS: Diclofenac Sodium 50 MG DR TAB PO SCH (08:11)
[2020-01-12] MEDS: tiZANidine HCl 4 MG TAB PO SCH ×3 (08:11→22:42)
[2020-01-12] MEDS: Aspirin 81 mg Enteric Coated Tablet PO SCH (08:12)
[2020-01-12] MEDS: Gabapentin 400 MG CAP PO SCH ×4 (08:13→22:43)
[2020-01-12] MEDS: PARoxetine 20 MG TAB PO SCH (08:14)
[2020-01-12] MEDS: Enoxaparin Sodium 40 MG/0.4 ML SYRINGE SC SCH (08:14)
[2020-01-12] MEDS: Lorazepam 1 MG TAB PO SCH ×3 (08:14→22:43)
[2020-01-12] MEDS ORDERED: hydrOXYzine Pamoate 25 mg Capsule PO PRN (08:37)
[2020-01-12] MEDS: CeleCOXIB 100 MG CAP PO SCH ×2 (10:21→22:45)
[2020-01-12] MEDS: Nicotine 21 MG PATCH TD SCH ×2 (10:23→22:56)
[2020-01-12 10:26] LABS: Vancomycin, Trough 34.7 ug/mL
[2020-01-12] MEDS ORDERED: Vancomycin HCl 1.25 GM in Sodium Chloride 0.9% 250 ML 250 ML IVPB SCH ×2 (11:00→15:00)
[2020-01-12] MEDS: Sodium Chloride 0.9% 1,000 ML IV SCH ×2 (13:24→21:00)
[2020-01-12 13:41] LABS: #Basophils 0.1 thou/uL (0.0-0.2); #Eosinphils 0.2 thou/uL (0.0-0.7); #Lymphocytes 1.9 thou/uL (1.20-3.40); #Monocytes 0.6 thou/uL (0.11-0.59); #Neutrophils 7.3 thou/uL (1.40-6.50); %Basophils 0.6 % (0.0-1.0); %Eosinophils 1.9 % (0.0-10.0); %Lymphocytes 18.6 % (21.0-51.0); %Neutrophils 72.9 % (42.0-75.0); Hemoglobin 11.6 g/dL (14.0-18.0); Mean Corpuscular HGB CONC 32.3 g/dL (32.0-36.0); Mean Corpuscular Hemoglobin 33.2 pg (27.0-31.0); Mean Platelet Volume 6.8 fL (7.4-10.4); Platelet Count 573 thou/uL (130-400); RBC Distribution Width 13.8 % (11.5-14.5); Red Blood Cell (RBC) Count 3.49 mill/uL (4.70-6.10)
[2020-01-12 14:11] LABS: Vancomycin, Trough 21.1 ug/mL
[2020-01-12 14:13] LABS: Calc. Creatinine Clearance 166 mL/min (70-130); Estimated GFR-MDRD Greater than 90
[2020-01-12] MEDS ORDERED: Vancomycin 1 GM in Premix Bag 1 BAG IVPB SCH (16:00)
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
[2020-01-13] MEDS: HYDROcodone/Acetaminophen 10/325 mg Tablet PO PRN ×5 (02:42→20:35)
[2020-01-13] MEDS: PARoxetine 20 MG TAB PO SCH (09:11)
[2020-01-13] MEDS: tiZANidine HCl 4 MG TAB PO SCH ×3 (09:11→20:19)
[2020-01-13] MEDS: CeleCOXIB 100 MG CAP PO SCH ×2 (09:11→20:17)
[2020-01-13] MEDS: Lorazepam 1 MG TAB PO SCH ×3 (09:11→20:18)
[2020-01-13] MEDS: Enoxaparin Sodium 40 MG/0.4 ML SYRINGE SC SCH (09:12)
[2020-01-13] MEDS: Aspirin 81 mg Enteric Coated Tablet PO SCH (09:12)
[2020-01-13] MEDS: Nicotine 21 MG PATCH TD SCH (09:14)
[2020-01-13] MEDS: DAPTOmycin 500 MG in Sodium Chloride 0.9% 100 ML IVPB SCH (09:21)
[2020-01-13] MEDS: Gabapentin 400 MG CAP PO SCH ×4 (09:21→20:18)
[2020-01-13] MEDS: Sodium Chloride 0.9% 1,000 ML IV SCH (12:05)
--- NOTE | 2020-01-13 16:31 | PDOC.HOSPP ---
- Subjective Encounter Date: 01/13/20 Encounter Time: 16:29 Subjective: Mr. Johnson was seen today in follow-up of MSRA infection in the left lower extremity. He does not have any new complaints. - Objective Vital Signs & Weight: Vital Signs (12 hours) Temp Pulse Resp BP BP Pulse Ox 01/13/20 16:14 98.3 F 78 16 139/77 96 01/13/20 11:58 97.9 F 90 16 136/82 95 01/13/20 09:11 96 01/13/20 07:43 98.1 F 78 16 158/71 H 96 Weight Admit Weight 200 lb 9.93 oz Weight 200 lb 9.93 oz I&O: 01/12/20 01/13/20 01/14/20 06:59 06:59 06:59 Intake Total 2250 Output Total 1200 1400 Balance -1200 850 Result Diagrams: 01/12/20 13:32 01/12/20 13:32 Hospitalist ROS - Medication Medications: Active Medications Generic Name Dose Route Start Last Admin Trade Name Freq PRN Reason Stop Dose Admin Hydrocodone Bitart/Acetaminophen 2 tab 01/09/20 17:15 01/13/20 16:14 [place] 10/325 PO 2 tab Q4H PRN Administration Moderate to Severe Pain (6-10) Aspirin 81 mg 01/08/20 09:00 01/13/20 09:12 Ecotrin PO 81 mg DAILY WALT Administration Celecoxib 100 mg 01/12/20 09:00 01/13/20 09:11 Celebrex PO 100 mg BID WALT Administration Enoxaparin Sodium 40 mg 01/05/20 09:00 01/13/20 09:12 Lovenox SC 40 mg 0900 WALT Administration Gabapentin 800 mg 01/08/20 09:00 01/13/20 16:14 Neurontin PO 800 mg QID WALT Administration Sodium Chloride 1,000 mls @ 75 mls/hr 01/07/20 10:01 01/13/20 12:05 Normal Saline 0.9% IV Not Given .[id number] WALT Daptomycin 500 mg/ Sodium 100 mls @ 200 mls/hr 01/13/20 09:00 01/13/20 09:21 Chloride IVPB 100 mls DAILY WALT Administration Lorazepam 0.5 mg 01/08/20 15:00 01/13/20 14:12 Ativan PO 0.5 mg TID WALT Administration Nicotine 21 mg 01/12/20 09:00 01/13/20 09:14 Nicoderm Patch TD Not Given DAILY WALT Paroxetine HCl 40 mg 01/08/20 09:00 01/13/20 09:11 Paxil PO 40 mg DAILY WALT Administration Sodium Chloride 10 ml 01/04/20 21:00 01/13/20 09:12 Flush - Normal Saline IVF 10 ml Q12HR WALT Administration Tizanidine HCl 8 mg 01/08/20 09:00 01/13/20 14:13 Zanaflex PO 8 mg TID WALT Administration - Exam Eye: PERRL, anicteric sclera Heart: RRR, no murmur, no gallops, no rubs, normal peripheral pulses Respiratory: CTAB, no wheezes, no rales, no ronchi, normal chest expansion, no tachypnea Gastrointestinal: soft, non-tender, non-distended, normal bowel sounds, no palpable masses Extremities: no cyanosis Hosp A/P (1) MRSA infection Code(s): A49.02 - METHICILLIN RESIS STAPH INFECTION, UNSP SITE Status: Acute (2) Anemia Code(s): D64.9 - ANEMIA, UNSPECIFIED Status: Chronic (3) SHY (acute kidney injury) Code(s): N17.9 - ACUTE KIDNEY FAILURE, UNSPECIFIED Status: Acute - Plan * No new recommendations * MRSA infection of the lower extremity- he is s/p removal of infected hardware * He has been transitioned to Daptomycin * Outpatient antibiotics have been arranged * Plan for discharge home tomorrow when patient has transportation
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
[2020-01-14] MEDS: HYDROcodone/Acetaminophen 10/325 mg Tablet PO PRN ×2 (01:10→10:07)
[2020-01-14] MEDS: Sodium Chloride 0.9% 1,000 ML IV SCH (01:11)
[2020-01-14] MEDS: tiZANidine HCl 4 MG TAB PO SCH (08:30)
[2020-01-14] MEDS: Lorazepam 1 MG TAB PO SCH (08:30)
[2020-01-14] MEDS: Enoxaparin Sodium 40 MG/0.4 ML SYRINGE SC SCH (08:30)
[2020-01-14] MEDS: Gabapentin 400 MG CAP PO SCH (08:30)
[2020-01-14] MEDS: CeleCOXIB 100 MG CAP PO SCH (08:30)
[2020-01-14] MEDS: PARoxetine 20 MG TAB PO SCH (08:30)
[2020-01-14] MEDS: Aspirin 81 mg Enteric Coated Tablet PO SCH (08:30)
[2020-01-14] MEDS: Nicotine 21 MG PATCH TD SCH (08:30)
[2020-01-14] MEDS: DAPTOmycin 500 MG in Sodium Chloride 0.9% 100 ML IVPB SCH (10:08)
[2020-01-14 11:30] VITALS: BP 126/70; TEMP 98.3
--- NOTE | 2020-01-14 12:03 | PQF ---
CLINICAL DOCUMENTATION CLARIFICATION FORM: Dear Dr. APRYL DAIGLE Date: 01-14-20 Please exercise your independent, professional judgment in responding to the clarification form. Clinical indicators are provided on the bottom of this form for your review. Please check appropriate box(es): [ x ] Excisional Debridement: [x ] Excised [ ] Cut away [ ] Other: Depth / layer: (deepest layer of debridement): [ ] Skin [ ] Subcutaneous [ ] Fascia [ ] Muscle [ ] Tendon [ x] Bone Appearance of wound: (e.g., down to fresh bleeding tissue, etc.) Margins: (please specify): / x x Instruments used: [ ] Scissors [ ] Scalpel [ ] Other: [ ] Non-excisional Debridement: (Removal by ?crushing, brushing, chemical, or washing) Depth / layer: (deepest layer of debridement): [ ] Skin [ ] Subcutaneous [ ] Fascia [ ] Muscle [ ] Tendon [ ] Bone [ ] Incision and Drainage only (No Debridement): Depth: [ ] Skin [ ] Subcutaneous [ ] Fascia [ ] Muscle [ ] Tendon [ ] Bone [ ] Other procedure diagnosis [ ] Unable to determine For continuity of documentation, please document condition throughout progress notes and discharge summary. Thank You. To be completed by CDI/Coding staff for physician review: CLINICAL INDICATORS - SIGNS / SYMPTOMS / LABS / RESULTS AND LOCATION IN EMR: OP NOTE 01-06-20: LEFT TIBIA INTRAMEDULLARY NAIL REMOVAL, LEFT TIBIA IRRIGATION AND DEBRIDEMENT FOR DEEP INFECTION, LEFT TIBIA ANTIBIOTICS NAIL PLACEMENT OP NOTE 01-06-20: WE INCISED THE PATIENTS PROXIMAL TIBIA OVER THE CROSSLOCK SCREWS. RISK FACTORS / RESULTS AND LOCATION IN EMR: OP NOTE 01-06-20: INFECTION OF LEFT PROXIMAL TIBIA FRACTURE WITH INTRAMEDULLARY NAIL NAIL PLACED TREATMENTS / RESULTS AND LOCATION IN EMR: OP NOTE 01-06-20: LEFT TIBIA INTRAMEDULLARY NAIL REMOVAL, LEFT TIBIA IRRIGATION AND DEBRIDEMENT FOR DEEP INFECTION, LEFT TIBIA ANTIBIOTICS NAIL PLACEMENT CDS Signature: Amie Cartwright Phone #: [phone] Date: 01-14-20 This is a permanent part of the Medical Record [facility]
== END 2020-01-14 11:53 | disposition home health service (06) | DRG 492 ==
LOC: ERS 15:24 → SURG A 18:59
PROVIDERS: ADMIT Internal Medicine; ATTEND Internal Medicine
PROC: 0QHH04Z Insertion of Internal Fixation Device into Left Tibia, Open Approach (ICD-10-PCS; principal; 2020-01-06)
PROC: 0QPH04Z Removal of Internal Fixation Device from Left Tibia, Open Approach (ICD-10-PCS; 2020-01-06)
PROC: 0YHJ0YZ Insertion of Other Device into Left Lower Leg, Open Approach (ICD-10-PCS; 2020-01-06)
PROC: 0QBH0ZZ Excision of Left Tibia, Open Approach (ICD-10-PCS; 2020-01-06)
PROC: 02H633Z Insertion of Infusion Device into Right Atrium, Percutaneous Approach (ICD-10-PCS; 2020-01-07)
PROC: B548ZZA Ultrasonography of Superior Vena Cava, Guidance (ICD-10-PCS; 2020-01-07)
DX: T84.623A Infection and inflammatory reaction due to internal fixation device of left tibia, initial encounter (principal); A41.02 Sepsis due to Methicillin resistant Staphylococcus aureus; L03.116 Cellulitis of left lower limb; N17.9 Acute kidney failure, unspecified; M86.8X6 Other osteomyelitis, lower leg; T81.30XA Disruption of wound, unspecified, initial encounter; Z20.828 Contact with and (suspected) exposure to other viral communicable diseases; Y83.1 Surgical operation with implant of artificial internal device as the cause of abnormal reaction of the patient, or of later complication, without mention of misadventure at the time of the procedure; F41.9 Anxiety disorder, unspecified; F32.9 Major depressive disorder, single episode, unspecified; F17.210 Nicotine dependence, cigarettes, uncomplicated; D64.9 Anemia, unspecified; J45.909 Unspecified asthma, uncomplicated; E78.5 Hyperlipidemia, unspecified; Z88.5 Allergy status to narcotic agent; Z88.8 Allergy status to other drugs, medicaments and biological substances; S82.142 Displaced bicondylar fracture of left tibia; V29.9XXD Motorcycle rider (driver) (passenger) injured in unspecified traffic accident, subsequent encounter; Z79.899 Other long term (current) drug therapy
CPT/HCPCS: 36415; 36569; 76000; 80048; 80053; 80202; 82550; 82565; 83605; 85025; 85652; 86140; 87040; 87070; 87076; 87077; 87186; 87205; 87635; 96365; 96366; 96367; 96368; 96375; C1713; C1751; J0692; J0878; J1100; J1170; J1644; J1650; J1885; J2175; J2270; J2405; J2704; J3010; J3370; J3490; J7050; U0003

== ENCOUNTER 2020-07-30 16:01 | Emergency (ER) | payer MEDICARE ==
[2020-07-30] MEDS ORDERED: Morphine 4 MG/ML VIAL ONE (16:47)
[2020-07-30 17:00] LABS: Hemoglobin 15.4 g/dL (14.0-18.0); Mean Corpuscular HGB CONC 33.8 g/dL (32.0-36.0); Mean Corpuscular Hemoglobin 34.3 pg (27.0-31.0); Mean Platelet Volume 8.5 fL (7.4-10.4); Platelet Count 223 thou/uL (130-400); RBC Distribution Width 12.9 % (11.5-14.5); Red Blood Cell (RBC) Count 4.49 mill/uL (4.70-6.10); White Blood Cell (WBC) Count 9.3 thou/uL (4.8-10.8)
[2020-07-30 17:45] LABS: Albumin 4.1 g/dL (3.5-5.0)
[2020-07-30 17:47] LABS: Calcium 9.2 mg/dL (7.8-10.44); Chloride 103 mmol/L (98-107); Potassium 4.1 mmol/L (3.5-5.1); Sodium 138 mmol/L (136-145)
[2020-07-30 17:47] LABS: Band 4 % (5-11); Eosinophils 1 % (0-10); Lymphocytes 20 % (21-51); MDiff Complete? YES; Monocytes 6 % (0-10); Neutrophil 65 % (42-75); Platelet Morphology Comment Appears Adequate; RBC Morphology Normal; Reactive Lymphocytes 4 % (0-10)
[2020-07-30 17:48] LABS: Globulin 3.1 g/dL (2.4-3.5); Glucose 72 mg/dL (70-105); Protein, Total 7.2 g/dL (6.0-8.3)
[2020-07-30 17:50] LABS: Anion Gap 19 mmol/L (10-20); Bilirubin, Total 0.5 mg/dL (0.2-1.2); Carbon Dioxide 20 mmol/L (22-29)
[2020-07-30 17:51] LABS: Alkaline Phosphatase 170 U/L (40-110); Calc. Creatinine Clearance 0 mL/min (70-130)
[2020-07-30 17:52] LABS: BUN (Urea Nitrogen) 11 mg/dL (8.9-20.6)
[2020-07-30 17:53] LABS: AST (SGOT) 11 U/L (5-34)
[2020-07-30 17:54] LABS: ALT (SGPT) 7 U/L (8-55)
== END 2020-07-30 18:18 | disposition home or self-care (01) ==
LOC: ERS 16:01
DX: M79.89 Other specified soft tissue disorders (principal); M79.662 Pain in left lower leg; F17.210 Nicotine dependence, cigarettes, uncomplicated
CPT/HCPCS: 36415; 80053; 85025; 96372; J2270

== ENCOUNTER 2020-09-02 13:03 | Emergency (ER) | payer OTHER, MEDICARE ==
[2020-09-02] MEDS ORDERED: Morphine 4 MG/ML VIAL ONE (15:13)
== END 2020-09-02 16:00 | disposition home or self-care (01) ==
LOC: ERS 13:03
DX: S80.812A Abrasion, left lower leg, initial encounter (principal); S80.811A Abrasion, right lower leg, initial encounter; G89.18 Other acute postprocedural pain; M25.562 Pain in left knee; F17.210 Nicotine dependence, cigarettes, uncomplicated; V89.2XXA Person injured in unspecified motor-vehicle accident, traffic, initial encounter
CPT/HCPCS: 96372; J2270

== ENCOUNTER 2020-09-15 12:15 | Inpatient (IN) | payer OTHER, MEDICARE ==
[2020-09-16 12:56] VITALS: BMI 25.7
[2020-09-17] MEDS ORDERED: Fentanyl 100 MCG/2 ML VIAL ONE ×3 (08:15→11:19)
[2020-09-17] MEDS ORDERED: Midazolam HCl 2 mg/2 ml Vial ONE (08:15)
[2020-09-17] MEDS ORDERED: Tobramycin/Dexamethasone Ophth Oint 3.5 GM TUBE ONE (08:35)
[2020-09-17] MEDS ORDERED: Lidocaine 1% (PF) 30 ML VIAL ONE (08:35)
[2020-09-17] MEDS ORDERED: Tobramycin Sulfate 1.2 GM VIAL ONE (08:36)
[2020-09-17] MEDS ORDERED: Dexamethasone 20 MG/5 ML VIAL ONE (09:00)
[2020-09-17] MEDS ORDERED: Ondansetron PF 4 MG/2 ML Vial ONE (09:00)
[2020-09-17] MEDS ORDERED: Lidocaine 1% PF 5 ML VIAL ONE (09:00)
[2020-09-17] MEDS ORDERED: PROPOFOL 200 MG/20 ML VIAL ONE (09:00)
[2020-09-17] MEDS ORDERED: Heparin 1,000 UNITS/ML VIAL ONE (09:52)
[2020-09-17] MEDS ORDERED: HYDROcodone/Acetaminophen 5/325 mg Tablet PO PRN (10:22)
[2020-09-17] MEDS ORDERED: Ondansetron PF 4 MG/2 ML Vial SLOW IVP PRN (10:22)
[2020-09-17] MEDS ORDERED: TETANUS AND DIPHTHERIA TOX/PF 0.5 ML DISP.SYRIN IM SCH (10:30)
[2020-09-17] MEDS ORDERED: Communication Order-Pharmacy FS SCH (10:30)
[2020-09-17] MEDS ORDERED: HYDROmorphone 0.5 MG/0.5 ML SYRINGE ONE (10:59)
[2020-09-17] MEDS ORDERED: HYDROmorphone 2 MG/ML VIAL ONE (11:06)
[2020-09-17] MEDS ORDERED: HYDROmorphone 2 MG/ML VIAL SLOW IVP PRN (11:12)
[2020-09-17] MEDS ORDERED: Promethazine HCl 25 MG/ML VIAL IM PRN (11:12)
[2020-09-17] MEDS ORDERED: Ondansetron HCl/PF 4 MG/2 ML Vial IVP PRN (11:12)
[2020-09-17] MEDS ORDERED: Promethazine HCl 25 MG/ML VIAL SLOW IVP PRN (11:12)
[2020-09-17] MEDS: HYDROcodone/Acetaminophen 5/325 mg Tablet PO PRN ×3 (13:27→21:41)
[2020-09-17] MEDS: Piperacillin/Tazobactam 3.375 GM in Sodium Chloride 0.9% 100 ML IVPB SCH ×3 (13:29→23:31)
[2020-09-17 14:36] LABS: Calc. Creatinine Clearance 147 mL/min (70-130)
[2020-09-17] MEDS: VANCOMYCIN 1.25 GM/250 ML BAG 1.25 GM in Premix Bag 1 BAG IVPB SCH (17:15)
[2020-09-17] MEDS: tiZANidine HCl 4 MG TAB PO PRN (17:51)
[2020-09-17] MEDS: Ketorolac Tromethamine 10 MG TAB PO PRN (17:51)
[2020-09-17] MEDS: Aspirin 81 mg Enteric Coated Tablet PO SCH (20:19)
[2020-09-18] MEDS: VANCOMYCIN 1.25 GM/250 ML BAG 1.25 GM in Premix Bag 1 BAG IVPB SCH ×3 (01:08→17:22)
[2020-09-18] MEDS: Piperacillin/Tazobactam 3.375 GM in Sodium Chloride 0.9% 100 ML IVPB SCH ×3 (05:39→20:00)
[2020-09-18 06:26] LABS: #Basophils 0.1 thou/uL (0.0-0.2); #Lymphocytes 1.4 thou/uL (1.20-3.40); #Monocytes 0.6 thou/uL (0.11-0.59); #Neutrophils 9.7 thou/uL (1.40-6.50); %Basophils 0.6 % (0.0-1.0); %Eosinophils 0.2 % (0.0-10.0); %Lymphocytes 11.7 % (21.0-51.0); %Monocytes 5.4 % (0.0-10.0); %Neutrophils 82.1 % (42.0-75.0); Hemoglobin 12.9 g/dL (14.0-18.0); Mean Corpuscular Hemoglobin 32.4 pg (27.0-31.0); Mean Platelet Volume 6.6 fL (7.4-10.4); Platelet Count 585 thou/uL (130-400); RBC Distribution Width 12.1 % (11.5-14.5); Red Blood Cell (RBC) Count 3.98 mill/uL (4.70-6.10); White Blood Cell (WBC) Count 11.8 thou/uL (4.8-10.8)
[2020-09-18 06:45] LABS: ALT (SGPT) Less than 7 U/L (8-55); AST (SGOT) 8 U/L (5-34); Albumin 3.4 g/dL (3.5-5.0); Alkaline Phosphatase 130 U/L (40-110); Anion Gap 11 mmol/L (10-20); BUN (Urea Nitrogen) 9 mg/dL (8.9-20.6); Bilirubin, Total 0.2 mg/dL (0.2-1.2); Calc. Creatinine Clearance 155 mL/min (70-130); Calcium 9.2 mg/dL (7.8-10.44); Carbon Dioxide 29 mmol/L (22-29); Chloride 103 mmol/L (98-107); Globulin 3.5 g/dL (2.4-3.5); Glucose 127 mg/dL (70-105); Potassium 4.2 mmol/L (3.5-5.1); Protein, Total 6.9 g/dL (6.0-8.3); Sodium 139 mmol/L (136-145)
[2020-09-18] MEDS: Aspirin 81 mg Enteric Coated Tablet PO SCH ×2 (08:33→20:01)
[2020-09-18] MEDS: HYDROcodone/Acetaminophen 5/325 mg Tablet PO PRN ×4 (08:33→21:34)
[2020-09-18] MEDS: Ketorolac Tromethamine 10 MG TAB PO PRN (21:34)
[2020-09-18] MEDS: tiZANidine HCl 4 MG TAB PO PRN (21:35)
[2020-09-19] MEDS: Piperacillin/Tazobactam 3.375 GM in Sodium Chloride 0.9% 100 ML IVPB SCH ×2 (00:08→05:27)
[2020-09-19] MEDS: VANCOMYCIN 1.25 GM/250 ML BAG 1.25 GM in Premix Bag 1 BAG IVPB SCH ×2 (01:33→08:11)
[2020-09-19] MEDS: HYDROcodone/Acetaminophen 5/325 mg Tablet PO PRN ×5 (03:49→21:15)
[2020-09-19] MEDS: Aspirin 81 mg Enteric Coated Tablet PO SCH ×2 (08:10→21:15)
[2020-09-19] MEDS: Ketorolac Tromethamine 10 MG TAB PO PRN (21:17)
[2020-09-20] MEDS: HYDROcodone/Acetaminophen 5/325 mg Tablet PO PRN ×6 (01:20→22:17)
[2020-09-20] MEDS: Aspirin 81 mg Enteric Coated Tablet PO SCH ×2 (09:30→19:55)
[2020-09-20] MEDS: Vancomycin 1.5 GRAM/300 ML BAG 1.5 GM in Premix Bag 1 BAG IVPB SCH ×3 (18:08→20:26)
[2020-09-20] MEDS: Ciprofloxacin 500 MG TAB PO SCH (19:55)
[2020-09-20] MEDS: Ketorolac Tromethamine 10 MG TAB PO PRN (22:17)
[2020-09-21] MEDS: HYDROcodone/Acetaminophen 5/325 mg Tablet PO PRN ×6 (02:12→22:28)
[2020-09-21] MEDS: Ciprofloxacin 500 MG TAB PO SCH ×2 (06:07→20:18)
[2020-09-21] MEDS: Aspirin 81 mg Enteric Coated Tablet PO SCH ×2 (08:52→20:18)
[2020-09-21] MEDS: Vancomycin 1.5 GRAM/300 ML BAG 1.5 GM in Premix Bag 1 BAG IVPB SCH ×2 (08:52→20:18)
[2020-09-22] MEDS: HYDROcodone/Acetaminophen 5/325 mg Tablet PO PRN ×6 (02:17→23:34)
[2020-09-22] MEDS: Ciprofloxacin 500 MG TAB PO SCH ×2 (06:13→20:07)
[2020-09-22] MEDS: Ketorolac Tromethamine 10 MG TAB PO PRN (06:15)
[2020-09-22] MEDS: Aspirin 81 mg Enteric Coated Tablet PO SCH ×2 (08:17→20:07)
[2020-09-22] MEDS: Vancomycin 1.5 GRAM/300 ML BAG 1.5 GM in Premix Bag 1 BAG IVPB SCH ×2 (09:06→20:06)
[2020-09-23] MEDS: HYDROcodone/Acetaminophen 5/325 mg Tablet PO PRN ×5 (03:27→20:25)
[2020-09-23] MEDS: Ciprofloxacin 500 MG TAB PO SCH ×2 (05:25→20:25)
[2020-09-23] MEDS: Aspirin 81 mg Enteric Coated Tablet PO SCH ×2 (08:05→20:24)
[2020-09-23] MEDS: Vancomycin 1.5 GRAM/300 ML BAG 1.5 GM in Premix Bag 1 BAG IVPB SCH (08:42)
[2020-09-23 19:23] LABS: Vancomycin, Trough 16.6 ug/mL
[2020-09-23] MEDS: tiZANidine HCl 4 MG TAB PO PRN (20:29)
[2020-09-24] MEDS: HYDROcodone/Acetaminophen 5/325 mg Tablet PO PRN ×6 (00:42→21:58)
[2020-09-24] MEDS: Vancomycin 1.5 GRAM/300 ML BAG 1.5 GM in Premix Bag 1 BAG IVPB SCH ×3 (00:43→19:56)
[2020-09-24] MEDS: Ciprofloxacin 500 MG TAB PO SCH ×2 (05:09→19:56)
[2020-09-24] MEDS: Aspirin 81 mg Enteric Coated Tablet PO SCH ×2 (09:14→19:55)
[2020-09-24] MEDS: tiZANidine HCl 4 MG TAB PO PRN (21:58)
[2020-09-25] MEDS: HYDROcodone/Acetaminophen 5/325 mg Tablet PO PRN ×6 (02:16→21:27)
[2020-09-25] MEDS: Ciprofloxacin 500 MG TAB PO SCH ×2 (05:59→19:51)
[2020-09-25] MEDS: Aspirin 81 mg Enteric Coated Tablet PO SCH ×2 (09:06→19:51)
[2020-09-25] MEDS: Vancomycin 1.5 GRAM/300 ML BAG 1.5 GM in Premix Bag 1 BAG IVPB SCH ×2 (09:06→19:50)
[2020-09-25] MEDS: tiZANidine HCl 4 MG TAB PO PRN (21:28)
[2020-09-26] MEDS: HYDROcodone/Acetaminophen 5/325 mg Tablet PO PRN ×6 (02:10→23:23)
[2020-09-26] MEDS: Ciprofloxacin 500 MG TAB PO SCH ×2 (05:58→20:31)
[2020-09-26] MEDS: Vancomycin 1.5 GRAM/300 ML BAG 1.5 GM in Premix Bag 1 BAG IVPB SCH ×2 (08:50→20:30)
[2020-09-26] MEDS: Aspirin 81 mg Enteric Coated Tablet PO SCH ×2 (08:51→20:31)
[2020-09-26] MEDS: tiZANidine HCl 4 MG TAB PO PRN (23:23)
[2020-09-27] MEDS: HYDROcodone/Acetaminophen 5/325 mg Tablet PO PRN ×5 (04:56→22:10)
[2020-09-27 07:58] LABS: Vancomycin, Trough 19.9 ug/mL
[2020-09-27] MEDS: Vancomycin 1.5 GRAM/300 ML BAG 1.5 GM in Premix Bag 1 BAG IVPB SCH ×2 (09:05→20:45)
[2020-09-27] MEDS: Aspirin 81 mg Enteric Coated Tablet PO SCH ×2 (09:07→20:45)
[2020-09-27] MEDS: tiZANidine HCl 4 MG TAB PO PRN (20:50)
[2020-09-28] MEDS: HYDROcodone/Acetaminophen 5/325 mg Tablet PO PRN ×4 (07:35→20:39)
[2020-09-28] MEDS: Aspirin 81 mg Enteric Coated Tablet PO SCH ×2 (08:09→20:39)
[2020-09-28] MEDS: Vancomycin 1.5 GRAM/300 ML BAG 1.5 GM in Premix Bag 1 BAG IVPB SCH ×2 (08:09→20:38)
[2020-09-28] MEDS: tiZANidine HCl 4 MG TAB PO PRN (20:39)
[2020-09-29] MEDS: HYDROcodone/Acetaminophen 5/325 mg Tablet PO PRN ×6 (00:25→22:15)
[2020-09-29] MEDS: Aspirin 81 mg Enteric Coated Tablet PO SCH ×2 (08:17→20:30)
[2020-09-29] MEDS: Vancomycin 1.5 GRAM/300 ML BAG 1.5 GM in Premix Bag 1 BAG IVPB SCH ×2 (08:17→20:29)
[2020-09-29 11:23] LABS: #Basophils 0.1 thou/uL (0.0-0.2); #Eosinphils 0.3 thou/uL (0.0-0.7); #Monocytes 0.4 thou/uL (0.11-0.59); #Neutrophils 4.5 thou/uL (1.40-6.50); %Basophils 1.8 % (0.0-1.0); %Eosinophils 3.6 % (0.0-10.0); %Lymphocytes 26.8 % (21.0-51.0); %Monocytes 5.6 % (0.0-10.0); %Neutrophils 62.2 % (42.0-75.0); Hemoglobin 13.9 g/dL (14.0-18.0); Mean Corpuscular Hemoglobin 32.8 pg (27.0-31.0); Mean Platelet Volume 7.2 fL (7.4-10.4); Platelet Count 367 thou/uL (130-400); RBC Distribution Width 12.9 % (11.5-14.5); Red Blood Cell (RBC) Count 4.25 mill/uL (4.70-6.10); White Blood Cell (WBC) Count 7.3 thou/uL (4.8-10.8)
[2020-09-29 11:50] LABS: ALT (SGPT) 17 U/L (8-55); AST (SGOT) 12 U/L (5-34); Alkaline Phosphatase 141 U/L (40-110); Bilirubin, Direct 0.2 mg/dL (0.1-0.3); Bilirubin, Total 0.5 mg/dL (0.2-1.2); Protein, Total 6.9 g/dL (6.0-8.3)
[2020-09-29 11:58] LABS: Anion Gap 12 mmol/L (10-20); BUN (Urea Nitrogen) 6 mg/dL (8.9-20.6); CRP (Inflammatory) 0.99 mg/dL (= or < 0.5); Calc. Creatinine Clearance 138 mL/min (70-130); Calcium 9.1 mg/dL (7.8-10.44); Carbon Dioxide 26 mmol/L (22-29); Chloride 103 mmol/L (98-107); Glucose 125 mg/dL (70-105); Potassium 3.4 mmol/L (3.5-5.1); Sodium 138 mmol/L (136-145)
[2020-09-29] MEDS: tiZANidine HCl 4 MG TAB PO PRN (20:30)
[2020-09-30] MEDS: HYDROcodone/Acetaminophen 5/325 mg Tablet PO PRN ×5 (02:57→20:24)
[2020-09-30] MEDS: Vancomycin 1.5 GRAM/300 ML BAG 1.5 GM in Premix Bag 1 BAG IVPB SCH ×2 (09:10→20:25)
[2020-09-30] MEDS: Aspirin 81 mg Enteric Coated Tablet PO SCH ×2 (09:10→20:25)
[2020-09-30] MEDS: tiZANidine HCl 4 MG TAB PO PRN (20:24)
[2020-10-01] MEDS: HYDROcodone/Acetaminophen 5/325 mg Tablet PO PRN ×4 (00:26→12:35)
[2020-10-01] MEDS: tiZANidine HCl 4 MG TAB PO PRN ×2 (03:47→11:44)
[2020-10-01] MEDS ORDERED: Vancomycin 1.5 GRAM/300 ML BAG 1.5 GM in Premix Bag 1 BAG IVPB SCH (08:00)
[2020-10-01] MEDS: Aspirin 81 mg Enteric Coated Tablet PO SCH (08:19)
[2020-10-01 11:48] VITALS: BP 139/76; TEMP 98.8
== END 2020-10-01 13:18 | disposition home health service (06) | DRG 464 ==
LOC: SURG A 09-17 06:34
PROVIDERS: ADMIT Orthopaedic Surgery; ATTEND Orthopaedic Surgery
PROC: 0QPH04Z Removal of Internal Fixation Device from Left Tibia, Open Approach (ICD-10-PCS; principal; 2020-09-17)
PROC: 0JDP0ZZ Extraction of Left Lower Leg Subcutaneous Tissue and Fascia, Open Approach (ICD-10-PCS; 2020-09-17)
PROC: 0JBR0ZZ Excision of Left Foot Subcutaneous Tissue and Fascia, Open Approach (ICD-10-PCS; 2020-09-17)
PROC: 02H633Z Insertion of Infusion Device into Right Atrium, Percutaneous Approach (ICD-10-PCS; 2020-09-21)
PROC: B548ZZA Ultrasonography of Superior Vena Cava, Guidance (ICD-10-PCS; 2020-09-21)
DX: T84.623A Infection and inflammatory reaction due to internal fixation device of left tibia, initial encounter (principal); S82.222 Displaced transverse fracture of shaft of left tibia; T81.31XA Disruption of external operation (surgical) wound, not elsewhere classified, initial encounter; L03.116 Cellulitis of left lower limb; L02.416 Cutaneous abscess of left lower limb; J44.9 Chronic obstructive pulmonary disease, unspecified; R73.03 Prediabetes; F17.210 Nicotine dependence, cigarettes, uncomplicated; F41.9 Anxiety disorder, unspecified; F32.9 Major depressive disorder, single episode, unspecified; B96.89 Other specified bacterial agents as the cause of diseases classified elsewhere; D72.829 Elevated white blood cell count, unspecified; Y83.1 Surgical operation with implant of artificial internal device as the cause of abnormal reaction of the patient, or of later complication, without mention of misadventure at the time of the procedure; Z83.3 Family history of diabetes mellitus; Z82.49 Family history of ischemic heart disease and other diseases of the circulatory system; Z79.899 Other long term (current) drug therapy; V49.9XXD Car occupant (driver) (passenger) injured in unspecified traffic accident, subsequent encounter; Z79.82 Long term (current) use of aspirin
CPT/HCPCS: 36415; 36569; 76000; 80048; 80053; 80076; 80202; 82565; 85025; 85652; 86140; 87070; 87077; 87186; 87205; C1751; J0690; J1100; J1170; J1644; J2001; J2250; J2405; J2543; J2704; J3010; J3260; J3370; J3490; U0003; U0005

== ENCOUNTER 2020-09-15 12:30 | Outpatient (CLI) | payer MEDICARE ==
[2020-09-15 14:10] LABS: #Basophils 0.1 10x3/uL (0.0-0.2); #Eosinphils 0.1 10x3/uL (0.0-0.5); #Monocytes 0.6 10x3/uL (0.0-1.1); #Neutrophils 5.7 10x3/uL (1.5-8.4); %Basophils 1.1 % (0.0-2.0); %Lymphocytes 20.5 % (18.0-47.0); %Monocytes 6.7 % (0.0-10.0); %Neutrophils 69.8 % (40.0-75.0); Mean Corpuscular HGB CONC 32.4 g/dL (32.0-36.0); Mean Corpuscular Hemoglobin 32.3 pg (27.0-33.0); Mean Corpuscular Volume 99.5 fl (81.2-95.1); Mean Platelet Volume 9.1 fl (7.4-10.4); Platelet Count 705 10x3/uL (150-450); RBC Distribution Width 12.3 % (11.5-14.5); Red Blood Cell (RBC) Count 4.34 10x6/uL (4.32-5.72); White Blood Cell (WBC) Count 8.2 10x3/uL (3.5-10.5)
[2020-09-16 01:05] LABS: SARS-CoV-2 PCR by NAA Not Detected (NotDetected)
== END 2020-09-15 12:31 | disposition home or self-care (01) ==
LOC: LABBT 12:30
PROVIDERS: ATTEND Dentist Oral and Maxillofacial Surgery
DX: Z01.812 Encounter for preprocedural laboratory examination (principal); S82.202D Unspecified fracture of shaft of left tibia, subsequent encounter for closed fracture with routine healing; Z20.822 Contact with and (suspected) exposure to COVID-19
CPT/HCPCS: 85025; 85652; 86140; 87635; U0003; U0005

== ENCOUNTER 2020-10-18 20:54 | Emergency (ER) | payer MEDICARE ==
[2020-10-18 22:56] LABS: Vancomycin, Random 17.2 ug/mL (See Comment)
== END 2020-10-19 00:05 | disposition home or self-care (01) ==
LOC: ERS 20:54
DX: Z45.2 Encounter for adjustment and management of vascular access device (principal); J45.909 Unspecified asthma, uncomplicated; F17.210 Nicotine dependence, cigarettes, uncomplicated
CPT/HCPCS: 36415; 80202; 96374; J1642

== ENCOUNTER 2020-10-22 12:30 | Emergency (ER) | payer MEDICARE ==
[2020-10-22 14:14] LABS: Vancomycin, Random 12.1 ug/mL (See Comment)
== END 2020-10-22 15:31 | disposition home or self-care (01) ==
LOC: ERS 12:30
DX: Z45.2 Encounter for adjustment and management of vascular access device (principal); F17.210 Nicotine dependence, cigarettes, uncomplicated
CPT/HCPCS: 36415; 80202; 99283

== ENCOUNTER 2020-11-16 13:28 | Emergency (ER) | payer MEDICARE | END 2020-11-16 15:54 | disposition home or self-care (01) | LOC: ERS 13:28 | DX: Z45.2 Encounter for adjustment and management of vascular access device (principal); J44.9 Chronic obstructive pulmonary disease, unspecified; F17.210 Nicotine dependence, cigarettes, uncomplicated; Z79.899 Other long term (current) drug therapy; Z79.891 Long term (current) use of opiate analgesic | CPT/HCPCS: 99283 ==

== ENCOUNTER 2021-02-22 11:36 | Outpatient (CLI) | payer MEDICARE ==
[2021-02-23 00:39] LABS: SARS-CoV-2 PCR by NAA Not Detected (NotDetected)
== END 2021-02-22 11:37 | disposition home or self-care (01) ==
LOC: LABBT 11:36
PROVIDERS: ATTEND Orthopaedic Surgery
DX: Z01.812 Encounter for preprocedural laboratory examination (principal); Z20.822 Contact with and (suspected) exposure to COVID-19; S82.202A Unspecified fracture of shaft of left tibia, initial encounter for closed fracture
CPT/HCPCS: U0003; U0005

== ENCOUNTER 2021-02-25 06:08 | Inpatient (IN) | payer MEDICARE ==
[2021-02-24 11:10] VITALS: BMI 26.2
[2021-02-25] MEDS ORDERED: ceFAZolin 2 GM/DEX 5% 100 ML BAG ONE (06:23)
[2021-02-25] MEDS ORDERED: Fentanyl 100 MCG/2 ML VIAL ONE ×4 (06:34→10:50)
[2021-02-25] MEDS ORDERED: Midazolam HCl 2 mg/2 ml Vial ONE ×2 (06:56→07:11)
[2021-02-25] MEDS ORDERED: Dexamethasone 4 mg/ml Vial ONE (06:57)
[2021-02-25] MEDS ORDERED: Lidocaine 1% PF 5 ML VIAL ONE (07:07)
[2021-02-25] MEDS ORDERED: Ondansetron PF 4 MG/2 ML Vial ONE (07:31)
[2021-02-25] MEDS ORDERED: Bupivacaine HCl 0.5%/Epinephrine 1:200,000/PF 30 ml Vial ONE (07:31)
[2021-02-25] MEDS ORDERED: PROPOFOL 200 MG/20 ML VIAL ONE (07:31)
[2021-02-25] MEDS ORDERED: Dexamethasone 20 MG/5 ML VIAL ONE ×2 (07:31)
[2021-02-25] MEDS ORDERED: Fentanyl 100 MCG/2 ML VIAL SLOW IVP PRN (09:59)
[2021-02-25] MEDS ORDERED: Ondansetron PF 4 MG/2 ML Vial IVP PRN (09:59)
[2021-02-25] MEDS ORDERED: Communication Order-Pharmacy FS SCH (10:00)
[2021-02-25] MEDS ORDERED: diphenhydrAMINE 25 MG CAP PO PRN (10:07)
[2021-02-25] MEDS ORDERED: Morphine 2 MG/ML VIAL SLOW IVP PRN (10:09)
[2021-02-25] MEDS ORDERED: Promethazine HCl 25 MG/ML VIAL IM/IV PRN (11:00)
[2021-02-25] MEDS ORDERED: Ondansetron HCl/PF 4 MG/2 ML Vial IVP PRN (11:00)
[2021-02-25] MEDS ORDERED: Non-Formulary Medication 1 EACH PO PRN (11:00)
[2021-02-25] MEDS ORDERED: FLU VACC QS2021-22(6MOS UP)/PF 60 MCG/0.5 ML SYRINGE IM ONE (14:00)
[2021-02-25] MEDS ORDERED: Albuterol Sulfate 2.5 mg/3 ml Neb NEB PRN (16:13)
[2021-02-25] MEDS: CeleCOXIB 100 MG CAP PO SCH ×2 (16:40→20:31)
[2021-02-25] MEDS: tiZANidine HCl 4 MG TAB PO SCH ×2 (16:41→20:30)
[2021-02-25] MEDS: Gabapentin 400 MG CAP PO SCH ×2 (16:41→20:30)
[2021-02-25] MEDS: HYDROcodone/Acetaminophen 10/325 mg Tablet PO PRN (16:49)
[2021-02-25] MEDS: Vancomycin 1.5 GRAM/300 ML BAG 1.5 GM in Premix Bag 1 BAG IVPB SCH (18:09)
[2021-02-25] MEDS: Aspirin 81 mg Enteric Coated Tablet PO SCH (20:30)
[2021-02-25] MEDS: Acetaminophen ER (8hr) 650 MG TAB PO SCH (20:31)
[2021-02-26] MEDS: Vancomycin 1.5 GRAM/300 ML BAG 1.5 GM in Premix Bag 1 BAG IVPB SCH ×3 (00:30→18:12)
[2021-02-26] MEDS: HYDROcodone/Acetaminophen 10/325 mg Tablet PO PRN ×5 (00:33→20:13)
[2021-02-26 06:15] LABS: #Monocytes 0.7 thou/uL (0.11-0.59); #Neutrophils 12.5 thou/uL (1.40-6.50); %Basophils 0.2 % (0.0-1.0); %Eosinophils 0.1 % (0.0-10.0); %Lymphocytes 6.8 % (21.0-51.0); %Monocytes 5.2 % (0.0-10.0); %Neutrophils 87.7 % (42.0-75.0); Hemoglobin 13.8 g/dL (14.0-18.0); Mean Corpuscular HGB CONC 32.1 g/dL (32.0-36.0); Mean Corpuscular Hemoglobin 33.1 pg (27.0-31.0); Mean Platelet Volume 7.7 fL (7.4-10.4); Platelet Count 280 thou/uL (130-400); RBC Distribution Width 12.7 % (11.5-14.5); Red Blood Cell (RBC) Count 4.15 mill/uL (4.70-6.10); White Blood Cell (WBC) Count 14.2 thou/uL (4.8-10.8)
[2021-02-26] MEDS: Acetaminophen ER (8hr) 650 MG TAB PO SCH ×2 (08:01→20:15)
[2021-02-26] MEDS: PARoxetine 20 MG TAB PO SCH (08:02)
[2021-02-26] MEDS: CeleCOXIB 100 MG CAP PO SCH ×3 (08:02→20:12)
[2021-02-26] MEDS: Aspirin 81 mg Enteric Coated Tablet PO SCH ×2 (08:02→20:13)
[2021-02-26] MEDS: tiZANidine HCl 4 MG TAB PO SCH ×3 (08:03→20:13)
[2021-02-26] MEDS: Nicotine 21 MG PATCH TD SCH (08:03)
[2021-02-26] MEDS: Gabapentin 400 MG CAP PO SCH ×4 (08:03→20:10)
[2021-02-26 17:04] LABS: Vancomycin, Trough 18.7 ug/mL
[2021-02-26 17:05] LABS: Calc. Creatinine Clearance 154 mL/min (70-130)
[2021-02-27] MEDS: Vancomycin 1.5 GRAM/300 ML BAG 1.5 GM in Premix Bag 1 BAG IVPB SCH ×3 (00:55→16:17)
[2021-02-27] MEDS: HYDROcodone/Acetaminophen 10/325 mg Tablet PO PRN ×5 (01:01→21:37)
[2021-02-27] MEDS: tiZANidine HCl 4 MG TAB PO SCH ×3 (08:47→20:42)
[2021-02-27] MEDS: Acetaminophen ER (8hr) 650 MG TAB PO SCH ×2 (08:48→20:40)
[2021-02-27] MEDS: Gabapentin 400 MG CAP PO SCH ×4 (08:48→20:42)
[2021-02-27] MEDS: Nicotine 21 MG PATCH TD SCH (08:49)
[2021-02-27] MEDS: Aspirin 81 mg Enteric Coated Tablet PO SCH ×2 (08:49→20:41)
[2021-02-27] MEDS: CeleCOXIB 100 MG CAP PO SCH ×3 (08:49→20:41)
[2021-02-27] MEDS: PARoxetine 20 MG TAB PO SCH (08:49)
[2021-02-28] MEDS: HYDROcodone/Acetaminophen 10/325 mg Tablet PO PRN ×2 (04:54→13:10)
[2021-02-28 07:13] LABS: #Eosinphils 0.1 thou/uL (0.0-0.7); #Lymphocytes 2.6 thou/uL (1.20-3.40); #Monocytes 0.6 thou/uL (0.11-0.59); #Neutrophils 3.5 thou/uL (1.40-6.50); %Basophils 0.7 % (0.0-1.0); %Eosinophils 1.4 % (0.0-10.0); %Lymphocytes 37.8 % (21.0-51.0); %Monocytes 9.1 % (0.0-10.0); Hemoglobin 10.5 g/dL (14.0-18.0); Mean Corpuscular HGB CONC 33.9 g/dL (32.0-36.0); Mean Corpuscular Hemoglobin 34.3 pg (27.0-31.0); Mean Platelet Volume 7.6 fL (7.4-10.4); Platelet Count 215 thou/uL (130-400); RBC Distribution Width 12.6 % (11.5-14.5); Red Blood Cell (RBC) Count 3.05 mill/uL (4.70-6.10); White Blood Cell (WBC) Count 6.8 thou/uL (4.8-10.8)
[2021-02-28] MEDS: Acetaminophen ER (8hr) 650 MG TAB PO SCH (08:49)
[2021-02-28] MEDS: Gabapentin 400 MG CAP PO SCH ×2 (08:50→13:09)
[2021-02-28] MEDS: PARoxetine 20 MG TAB PO SCH (08:51)
[2021-02-28] MEDS: tiZANidine HCl 4 MG TAB PO SCH ×2 (08:51→16:08)
[2021-02-28] MEDS: CeleCOXIB 100 MG CAP PO SCH ×2 (08:51→16:07)
[2021-02-28] MEDS: Aspirin 81 mg Enteric Coated Tablet PO SCH (08:52)
[2021-02-28] MEDS: Nicotine 21 MG PATCH TD SCH (08:52)
[2021-02-28 16:24] VITALS: BP 139/81; TEMP 98.2
== END 2021-02-28 17:26 | disposition home or self-care (01) | DRG 494 ==
LOC: SDC 06:08 → SURG B 10:08 → EDSTATUS 12:00 → OBSVTOIN 02-27 12:52
PROVIDERS: ADMIT Orthopaedic Surgery; ATTEND Orthopaedic Surgery
PROC: 0QSH04Z Reposition Left Tibia with Internal Fixation Device, Open Approach (ICD-10-PCS; principal; 2021-02-25)
DX: S82.102K Unspecified fracture of upper end of left tibia, subsequent encounter for closed fracture with nonunion (principal)
CPT/HCPCS: 36415; 76000; 80202; 82565; 85025; 87070; 87205; 90471; 90686; 90732; 96365; 96366; C1713; G0008; G0009; G0378; J1100; J2250; J2405; J2704; J3010; J3370

== ENCOUNTER 2021-12-09 11:19 | Emergency (ER) | payer OTHER ==
[2021-12-09] MEDS ORDERED: HYDROcodone/Acetaminophen 10/325 mg Tablet ONE (12:27)
== END 2021-12-09 14:25 | disposition home or self-care (01) ==
LOC: ERS 11:19
DX: M25.562 Pain in left knee (principal); G89.29 Other chronic pain; J44.9 Chronic obstructive pulmonary disease, unspecified; F17.210 Nicotine dependence, cigarettes, uncomplicated

== ENCOUNTER 2021-12-26 12:30 | Emergency (ER) | payer OTHER ==
[2021-12-26] MEDS ORDERED: Ondansetron PF 4 MG/2 ML Vial ONE (12:47)
[2021-12-26] MEDS ORDERED: Ondansetron ODT 4 MG TAB ONE (12:48)
== END 2021-12-26 15:15 | disposition home or self-care (01) ==
LOC: ERS 12:30
DX: U07.1 COVID-19 (principal); J44.9 Chronic obstructive pulmonary disease, unspecified; F17.210 Nicotine dependence, cigarettes, uncomplicated; Z79.899 Other long term (current) drug therapy
CPT/HCPCS: 99283; J2405; Q0162